=== PATIENT | male | born 1985 | race Two or more races ===

== ENCOUNTER 2018-01-29 21:32 | Inpatient (IN) | payer MEDICAID ==
[~2018-01-29] VITALS: Ht 175.3 cm; Wt 64.5 kg
--- NOTE | 2018-01-29 21:56 | Emergency Room Report ---
History of Present Illness General Chief Complaint: Fever Source: Patient, EMS Present Illness HPI This a 32-year-old male with history of HIV but not on medication currently. He 's been off of his medication for a month because he claimed it was stolen. He presents chief complaint of fever. Onset this morning when he woke up. Has chills and sweats. Also with cough productive of dark early sputum with blood. Nausea but no vomiting. No diarrhea. Decreased appetite. No sick contact. Has generalized body pain 10 out of 10. Nothing made it better. Nothing made it worse. Allergies: Coded Allergies: SULFAMETHOXAZOLE (Verified Allergy, Unknown, 01/29/18) TRIMETHOPRIM (Verified Allergy, Unknown, 01/29/18) Patient History Past Medical History: see triage record, old chart reviewed Past Surgical History: other Pertinent Family History: none Social History: Denies: smoking Immunizations: other Reviewed Nursing Documentation: PMH: Agreed; PSxH: Agreed Nursing Documentation-PMH Past Medical History: No History, Except For Hx Cardiac Problems: No - HIV+ Review of Systems Constitutional: Reports: chills, sweats, fever, malaise, weakness Eye: Denies: eye pain, blurred vision ENT: Denies: ear pain, nose congestion, throat swelling Respiratory: Reports: cough, shortness of breath, sputum Cardiovascular: Denies: chest pain, palpitations Gastrointestinal: Denies: abdominal pain, diarrhea, nausea, vomiting Musculoskeletal: Denies: back pain, joint pain Skin: Denies: rash Neurological: Denies: headache, numbness Endocrine: Denies: increased thirst, increased urine Hematologic/Lymphatic: Denies: easy bruising All Other Systems: negative except mentioned in HPI Physical Exam Vital Signs Date Time Temp Pulse Resp B/P (MAP) Pulse Ox O2 Delivery O2 Flow Rate FiO2 01/29/18 21:29 103.2 125 20 102/55 100 Room Air 103.3 vitals with fever and tachycardia Sp02 EP Interpretation: reviewed, normal General Appearance: thin Head: normocephalic, atraumatic Eyes: bilateral eye PERRL, bilateral eye EOMI ENT: hearing grossly normal, normal pharynx Neck: full range of motion, supple, no meningismus Respiratory: chest non-tender, lungs clear, normal breath sounds, decreased breath sounds Cardiovascular #1: regular rate, rhythm, no murmur Gastrointestinal: normal bowel sounds, non tender, no mass, no organomegaly, no bruit, non-distended Musculoskeletal: back normal, gait/station normal, normal range of motion Neurologic: alert, oriented x3 Psychiatric: mood/affect normal Skin: warm/dry Medical Decision Making Diagnostic Impression: Primary Impression: Sepsis Qualified Codes: A41.9 - Sepsis, unspecified organism Additional Impressions: Cough MASSIEL (acute kidney injury) Methamphetamine abuse Fever Qualified Codes: R50.9 - Fever, unspecified Proteinuria Qualified Codes: R80.9 - Proteinuria, unspecified Noncompliance Anemia Qualified Codes: D64.9 - Anemia, unspecified ER Course Is a 32-year-old male presents with sepsis and fever. No obvious source of infection from bacterial standpoint. He does have bacteria in his urine. Dose of Rocephin given. This may be a viral illness. Heart rate improved after fluid. Blood pressure slowly improved after 4 L of IV fluid. Will admit for IV hydration and monitoring. I discussed the case with Dr. Toribio who will admit. Lab Results Impression labs with leukocytosis EKG Diagnostic Results Rate: normal Rhythm: NSR ST Segments: no acute changes Rhythm Strip Diag. Results Rhythm Strip Time: 02:44 EP Interpretation: yes Rate: 100 Rhythm: NSR, no PVC's, no ectopy Chest X-Ray Diagnostic Results Chest X-Ray Diagnostic Results : Chest X-Ray Ordered: Yes # of Views/Limited/Complete: 1 View Indication: Shortness of Breath EP Interpretation: Yes Interpretation: no consolidation, no effusion, no pneumothorax, no acute cardiopulmonary disease Impression: No acute disease Electronically Signed by: Carson Isidro MD Last Vital Signs Date Time Temp Pulse Resp B/P (MAP) Pulse Ox O2 Delivery O2 Flow Rate FiO2 01/29/18 21:29 103.2 125 20 102/55 100 Room Air 103.3 Status: improved Disposition: ADMITTED INPATIENT Condition: Serious CARSON ISIDRO M.D. Jan 29, 2018 21:56
[2018-01-29] MEDS ORDERED: NS 1000ml 1,900 ML IVLG ONE (22:00)
[2018-01-29] MEDS ORDERED: Acetaminophen 500mg (ES) tab ORAL ONE (22:00)
--- NOTE | 2018-01-29 22:28 | Diagnostic Imaging Report ---
EXAM: XR Chest, 1 View CLINICAL HISTORY: COUGH TECHNIQUE: Frontal view of the chest. COMPARISON: No relevant prior studies available. FINDINGS: Lungs: Unremarkable. No consolidation. Pleural space: Unremarkable. No pneumothorax. Heart: Heart size is top normal. Mediastinum: Unremarkable. Bones/joints: Unremarkable. IMPRESSION: No radiographic evidence of acute cardiopulmonary disease.
[2018-01-29 22:40] LABS: BASOPHILS % (AUTO) 1.8 % (0.0-2.0); EOSINOPHILS % (AUTO) 0.3 % (0.0-3.0); HEMOGLOBIN 8.6 G/DL (14.2-18.0); LYMPHOCYTES % (AUTO) 44.4 % (20.0-45.0); MEAN CORPUSCULAR VOLUME 89 FL (80-99); MONOCYTES % (AUTO) 10.2 % (1.0-10.0); NEUTROPHILS % (AUTO) 43.3 % (45.0-75.0); PLATELET COUNT 189 K/UL (150-450); RED BLOOD COUNT 2.94 M/UL (4.70-6.10); RED CELL DISTRIBUTION WIDTH 12.9 % (11.6-14.8); WHITE BLOOD COUNT 17.1 K/UL (4.8-10.8)
[2018-01-29 22:47] LABS: ANION GAP 7 mmol/L (5-15); BLOOD UREA NITROGEN 15 mg/dL (7-18); CALCIUM 8.2 MG/DL (8.5-10.1); CARBON DIOXIDE 22 MMOL/L (21-32); CHLORIDE 99 MMOL/L (98-107); CREATININE 1.7 MG/DL (0.55-1.30); POTASSIUM 3.6 MMOL/L (3.5-5.1); SODIUM 127 MMOL/L (136-145)
[2018-01-29 23:02] LABS: ALANINE AMINOTRANSFERASE 19 U/L (12-78); ALBUMIN 2.2 G/DL (3.4-5.0); ALKALINE PHOSPHATASE 60 U/L (46-116); ASPARTATE AMINO TRANSFERASE 41 U/L (15-37); BILIRUBIN,TOTAL 0.5 MG/DL (0.2-1.0)
[2018-01-29 23:48] LABS: APPEARANCE,URINE CLEAR; BILIRUBIN, URINE NEGATIVE (NEGATIVE); COLOR,URINE BROWN; GLUCOSE, URINE (UA) NEGATIVE (NEGATIVE); KETONES,URINE 1+ (NEGATIVE); LEUKOCYTE ESTERASE ,URINE 1+ (NEGATIVE); NITRITE,URINE NEGATIVE (NEGATIVE); PH,URINE 5 (4.5-8.0); PROTEIN,URINE 3+ (NEGATIVE); UROBILINOGEN,URINE NORMAL MG/DL (0.0-1.0)
[2018-01-30] VITALS (7 sets, daily range): BP systolic 86–106; BP diastolic 36–57
[2018-01-30] MEDS ORDERED: cefTRIAXone 1 GM in NS 55 ML IVPB ONE (00:15)
[2018-01-30] MEDS ORDERED: Miralax 17gm pkt ORAL PRN (03:45)
[2018-01-30] MEDS ORDERED: Albuterol/Ipratropium 3ml neb HHN PRN (03:45)
[2018-01-30] MEDS ORDERED: LORazepam Inj 2mg/ml 1ml IV PRN (04:00)
[2018-01-30] MEDS ORDERED: Cefepime HCl 2 GM in D5W 110 ML IV SCH ×2 (05:00→18:00)
[2018-01-30] MEDS: D5NS 1,000 ML IV SCH ×2 (06:02→17:05)
[2018-01-30] MEDS ORDERED: PPD Tuberculin Skin Test 5TU IDERMAL ONE (08:00)
[2018-01-30 08:50] LABS: CREATINE KINASE 112 U/L (26-308); LACTATE DEHYDROGENASE 171 U/L (81-234)
[2018-01-30] MEDS: Vancomycin 1 GM in D5W 275 ML IVPB SCH ×2 (09:35→22:08)
[2018-01-30 11:19] LABS: FERRITIN 278 NG/ML (8-388)
[2018-01-30 11:35] LABS: % IRON SATURATION 14 % (15-50); IRON 16 ug/dL (50-175); TOTAL IRON BINDING CAPACITY 117 ug/dL (250-450)
--- NOTE | 2018-01-30 12:03 | Consultation ---
Consult Note Consult Note This a 32-year-old male with history of HIV but not on medication currently. He 's been off of his medication for a month because he claimed it was stolen. He presents chief complaint of fever. Onset this morning when he woke up. Has chills and sweats. Also with cough productive of dark early sputum with blood. Nausea but no vomiting. No diarrhea. Decreased appetite. No sick contact. Has generalized body pain 10 out of 10. Nothing made it better. Nothing made it worse. Allergies: SULFAMETHOXAZOLE (Verified Allergy, Unknown, 01/29/18) TRIMETHOPRIM (Verified Allergy, Unknown, 01/29/18) Nursing Documentation-[facility] Past Medical History: No History, Except For Hx Cardiac Problems: No - HIV+ . Assessment/Plan Renal failure ? mixed acute and chronic Has proteinuria and hypoalbuminemia Hyponatremia, likely due to Hypoalbuminemia Low Iron and B12 Sepsis, cough, fever Methamphetamine abuse Anemia etiology?? Saline infusion IV venofer B12 SQ Per ID Urine studies and 24 h Urine protein gastric support BRISEYDA ALBERT Jan 30, 2018 12:03
--- NOTE | 2018-01-30 12:45 | History and Physical Report ---
DATE OF ADMISSION: 01/30/2018 TIME SEEN: At 9 a.m. CONSULTANTS: 1. Axel Evans M.D. 2. Mauro Santiago M.D. 3. Robert Izquierdo M.D. CHIEF COMPLAINT: Weakness, sepsis, fever, tachycardia. BRIEF HISTORY: This is a 32-year-old male, homeless man, who presents to [place] [facility] last night with history of increased heart rate and was feeling feverish, found to have sepsis and tachycardia, admitted to telemetry for further care. Currently, feeling a little bit better, slightly anxious in bed, slightly short of breath in bed. REVIEW OF SYSTEMS: No chest pain. Slight shortness of breath. No nausea, vomiting, or diarrhea. PAST MEDICAL HISTORY: HIV. PAST SURGICAL HISTORY: None. ALLERGIES: Denies. MEDICATIONS: Include cefepime, vancomycin, Tylenol, morphine, Zofran, dextrose, ceftriaxone. SOCIAL HISTORY: Positive for smoking. Occasional alcohol. Positive marijuana use. OBJECTIVE: GENERAL: Calm in bed, oriented x3, in no acute distress. VITAL SIGNS: Temperature 99, pulse 104, respirations 14, blood pressure 93/50. CARDIOVASCULAR: No murmur. LUNGS: Poor exchange. ABDOMEN: Nondistended. EXTREMITIES: Show no cyanosis, clubbing, or edema. NEUROLOGIC: The patient moves all extremities, slightly weak. LABORATORY AND DIAGNOSTIC DATA: Labs at this time show white count 17, hemoglobin and hematocrit 8.6 and 26, otherwise normal. BMP shows sodium 127, creatinine 1.7. Urine-tox positive for amphetamines and marijuana. Urinalysis, 1+ leukocyte esterase. ASSESSMENT: UTI, sepsis, fever, tachycardia, anemia, renal insufficiency, HIV, drug abuse. PLAN: Continue previous medications. O2 and pulmonary treatment. Antibiotics per Infectious Disease. Blood pressure control. Detox. Dietary followup. Dr. Evans, Dr. Santiago, Dr. Izquierdo, and Dr. Quinn to consult. Jorge Toribio D.O. DR: Sonido JOB#: [id number] CC:
[2018-01-30] MEDS ORDERED: Morphine Sulfate 4mg/ml Inj IVP PRN (12:56)
[2018-01-30] MEDS ORDERED: Iron Sucrose 200 MG in NS 110 ML IV ONE (14:00)
--- NOTE | 2018-01-30 17:09 | Consultation ---
Consult Note Consult Note # [id number] Axel Evans MD Jan 30, 2018 17:09
--- NOTE | 2018-01-30 18:15 | Consultation ---
DATE OF CONSULTATION: 01/30/2018 INFECTIOUS DISEASE CONSULTATION CONSULTING PHYSICIAN: Axel Evans M.D. REFERRING PHYSICIAN: Jorge Toribio D.O. REASON FOR CONSULTATION: Evaluation of the patient for HIV, pneumonia, and fever, antibiotic management. HISTORY OF PRESENT ILLNESS: The patient is a 32-year-old transgender (male to female) with multiple medical problems as listed below including history of HIV since 2009. The patient was admitted to this medical center because of the general weakness, cough and fever. The patient overall is not very cooperative with the exam providing information. He does not know much about details of his HIV status. The patient has been started on IV antibiotics. An Infectious Disease consultation has been requested for further evaluation of the patient's antibiotic management. PAST MEDICAL HISTORY: 1. HIV, diagnosed in 2009 (unknown CD4 count and viral load, clinically the patient appears to be well-controlled). 2. History of recent fall 3 days ago and hand edema and swelling since then. 3. The patient smokes tobacco and marijuana. MEDICATIONS: Cefepime and vancomycin. ALLERGIES: Sulfa. FAMILY HISTORY: Noncontributing. SOCIAL HISTORY: The patient is homeless. No history of IV drug abuse. REVIEW OF SYSTEMS: HEENT: No recent change in vision or hearing. PULMONARY: As mentioned above. CARDIOVASCULAR: No chest pain or palpitations. GASTROINTESTINAL/ABDOMEN: Nausea, vomiting, ? mild diarrhea prior to admission. MUSCULOSKELETAL: As mentioned above. The patient has left hand tenderness and swelling. PHYSICAL EXAMINATION: VITAL SIGNS: Temperature 102 degrees, blood pressure 97/54, pulse 86, and respiratory rate 18. HEENT: No pale conjunctivae. No icterus. No thrush. NECK: No lymphadenopathy. CHEST: Clear. HEART: S1 and S2. ABDOMEN: Soft and nontender. EXTREMITIES: The patient has left hand edema and tenderness. NEUROLOGIC: Awake and alert. LABORATORY AND DIAGNOSTIC DATA: White blood cells 17, hemoglobin 8.6, and platelet 189. UA unremarkable. BUN 15 and creatinine 0.7. ALT, AST, and alkaline phosphatase unremarkable. CD4 count pending. HIV antibody is pending. Coccidia and RPR are pending. Chest x-ray, [facility]. ASSESSMENT: The patient is a 32-year-old male with 1. Fever. 2. Leukocytosis. 3. ? Bronchitis versus early stage of community acquired pneumonia. 4. Leukocytosis . 5. ? left hand cellulitis (difficult to assess erythema in view of patient's dark skin). 6. HIV, ? CD4 count and viral load. 7. Rule out left hand fracture. 8. Rule out bacteremia. PLAN: 1. We will continue the patient on IV vancomycin, change cefepime to Levaquin. 2. Monitor CBC and BMP. 3. Monitor blood culture. 4. Monitor sputum culture. 5. Monitor chest x-ray. 6. Left hand x-ray, rule out fracture. 7. We will contact [facility] on Thursday to get list of the patient's home medication and we will start the patient's antiretroviral based on that. 8. Monitor CD4 count. Thank you, Dr. Jorge Toribio, for allowing me to participate in the care of this patient. I will follow the patient with you during this hospitalization. Axel Evans M.D. DR: JOSH JOB#: [id number] CC:
--- NOTE | 2018-01-30 18:48 | Cardiac Electrophysiology PN ---
Subjective Subjective [id number] Objective Last 24 Hour Vital Signs Date Time Temp Pulse Resp B/P (MAP) Pulse Ox O2 Delivery O2 Flow Rate FiO2 01/30/18 16:02 102.2 01/30/18 16:00 116 01/30/18 12:00 106 01/30/18 12:00 98.3 105 20 97/54 98 Room Air 98.3 01/30/18 08:00 111 01/30/18 08:00 98.0 103 19 99/42 97 Room Air 98.0 01/30/18 04:00 100 01/30/18 03:15 104 93/50 93 01/30/18 02:50 99.6 100 14 99/36 96 Room Air 99.6 01/30/18 02:41 99.6 100 14 99/36 96 Room Air 99.6 01/30/18 02:06 101.6 101 14 96/39 96 Room Air 101.6 01/30/18 01:28 101.6 01/29/18 22:31 103.2 01/29/18 21:29 103.2 125 20 102/55 100 Room Air 103.3 Intake and Output 01/29/18 01/30/18 19:00 07:00 Intake Total 3955 ml Output Total 200 ml Balance 3755 ml IV Total 3955 ml Output Urine Total 200 ml Laboratory Tests Test 01/29/18 22:15 01/29/18 23:34 01/30/18 00:00 01/30/18 06:00 White Blood Count 17.1 K/UL (4.8-10.8) H Pending Red Blood Count 2.94 M/UL (4.70-6.10) L Hemoglobin 8.6 G/DL (14.2-18.0) L Hematocrit 26.0 % (42.0-52.0) L Mean Corpuscular Volume 89 FL (80-99) Mean Corpuscular Hemoglobin 29.3 PG (27.0-31.0) Mean Corpuscular Hemoglobin Concent 33.0 G/DL (32.0-36.0) Red Cell Distribution Width 12.9 % (11.6-14.8) Platelet Count 189 K/UL (150-450) Mean Platelet Volume 7.0 FL (6.5-10.1) Neutrophils (%) (Auto) 43.3 % (45.0-75.0) L Lymphocytes (%) (Auto) 44.4 % (20.0-45.0) Monocytes (%) (Auto) 10.2 % (1.0-10.0) H Eosinophils (%) (Auto) 0.3 % (0.0-3.0) Basophils (%) (Auto) 1.8 % (0.0-2.0) Sodium Level 127 MMOL/L (136-145) L Potassium Level 3.6 MMOL/L (3.5-5.1) Chloride Level 99 MMOL/L (98-107) Carbon Dioxide Level 22 MMOL/L (21-32) Anion Gap 7 mmol/L (5-15) Blood Urea Nitrogen 15 mg/dL (7-18) Creatinine 1.7 MG/DL (0.55-1.30) H Estimat Glomerular Filtration Rate 47.2 mL/min (>60) Glucose Level 103 MG/DL (74-106) Lactic Acid Level 1.10 mmol/L (0.4-2.0) Calcium Level 8.2 MG/DL (8.5-10.1) L Total Bilirubin 0.5 MG/DL (0.2-1.0) Aspartate Amino Transf (AST/SGOT) 41 U/L (15-37) H Alanine Aminotransferase (ALT/SGPT) 19 U/L (12-78) Alkaline Phosphatase 60 U/L (46-116) Total Protein 12.3 G/DL (6.4-8.2) H Albumin 2.2 G/DL (3.4-5.0) L Globulin 10.1 g/dL Urine Color Brown Urine Appearance Clear Urine pH 5 (4.5-8.0) Urine Specific [place] 1.015 (1.005-1.035) Urine Protein 3+ (NEGATIVE) H Urine Glucose (UA) Negative (NEGATIVE) Urine Ketones 1+ (NEGATIVE) H Urine Occult Blood 2+ (NEGATIVE) H Urine Nitrite Negative (NEGATIVE) Urine Bilirubin Negative (NEGATIVE) Urine Urobilinogen Normal MG/DL (0.0-1.0) Urine Leukocyte Esterase 1+ (NEGATIVE) H Urine RBC 2-4 /HPF (0 - 0) H Urine WBC 2-4 /HPF (0 - 0) Urine Squamous Epithelial Cells Occasional /LPF Urine Amorphous Sediment Few /LPF (NONE) H Urine Bacteria Few /HPF (NONE) Urine Mucus Moderate /LPF (NONE/OCC) H Urine Opiates Screen Negative (NEGATIVE) Urine Barbiturates Screen Negative (NEGATIVE) Phencyclidine (PCP) Screen Negative (NEGATIVE) Urine Amphetamines Screen Positive (NEGATIVE) H Urine Benzodiazepines Screen Negative (NEGATIVE) Urine Cocaine Screen Negative (NEGATIVE) Urine Marijuana (THC) Screen Positive (NEGATIVE) H HIV-1 Antibody Pending HIV-2 Antibody Pending Lymphocytes Pending Osmolality 280 mOsm/kg (297-317) L Uric Acid 5.5 MG/DL (2.6-7.2) Iron Level 16 ug/dL (50-175) L Total Iron Binding Capacity 117 ug/dL (250-450) L Percent Iron Saturation 14 % (15-50) L Unsaturated Iron Binding 101 ug/dL (112-346) L Ferritin 278 NG/ML (8-388) Lactate Dehydrogenase 171 U/L (81-234) Total Creatine Kinase 112 U/L (26-308) C-Reactive Protein, Quantitative 7.0 mg/dL (0.00-0.90) H Vitamin B12 Level 292 PG/ML (193-986) Folate 16.0 NG/ML (8.6-58.9) Percent CD3 Cells Pending Absolute CD3 Count Pending Percent CD4 Cells Pending Absolute CD4 Count Pending T-Lymphocyte CD4/CD8 Ratio Pending Percent CD8 Cells Pending Absolute CD8 Count Pending Rapid Plasma Reagin Pending Coccidioides Antibody (Comp Fix) Pending HIV (1&2) Antibody Rapid Preliminary positive Toxoplasma IgG Antibody Pending Toxoplasma IgM Antibody Pending Test 01/30/18 10:00 Urine Random Sodium 98 mmol/L (20-110) Mauro Santiago MD Jan 30, 2018 18:48
--- NOTE | 2018-01-30 21:30 | Consultation ---
DATE OF CONSULTATION: 01/30/2018 CARDIOLOGY CONSULTATION CONSULTING PHYSICIAN: Mauro Santiago M.D. REFERRING PHYSICIAN: Jorge Toribio D.O. REASON FOR CONSULTATION: Palpitation and tachycardia. HISTORY OF PRESENT ILLNESS: The patient is a 32-year-old, transgender male to female with history of HIV, pneumonia who was admitted to the hospital because of generalized weakness, cough, and fever. The patient does not have much information about his HIV status. The patient however was tachycardic and a Cardiology consultation was obtained for further evaluation. REVIEW OF SYSTEMS: Review of systems was negative other than what was mentioned in the history of present illness. PAST MEDICAL HISTORY: 1. HIV in 2009 with no CD4 count and viral load. 2. History of fall two days ago without edema and swelling. MEDICATIONS: Per reconciliation. ALLERGIES: He is allergic to sulfa. SOCIAL HISTORY: He is homeless. No history of IV drug use. PHYSICAL EXAMINATION: VITAL SIGNS: Blood pressure of 97/54, pulse 105, respirations 20, and temperature 102.2 degrees. HEAD AND NECK: No JVD. LUNGS: Coarse rhonchi. CARDIOVASCULAR: Tachycardic. S1 and S2 with no gallop or murmur. ABDOMEN: Soft and nontender. EXTREMITIES: A 1+ pitting edema. LABORATORY AND DIAGNOSTIC DATA: Show white count of 17.1, hemoglobin 8.7, hematocrit 26, and platelet count of 189. Sodium 127, potassium 3.6, BUN of 51, creatinine 1.7, and glucose of 103. ASSESSMENT AND PLAN: 1. Tachycardia, this is due to sinus tachycardia. The patient has fever and sepsis. We will get an echocardiogram to make sure, he does not have endocarditis. the patient remains on IV antibiotic. 2. HIV. Further evaluation by Dr. Evans. 3. Transgender male to female. Thank you very much, Dr. Toribio, for allowing me to participate in the care of this patient. Please do not hesitate to contact me for any questions regarding my evaluation. Mauro Santiago M.D. DR: OKSANA JOB#: [id number] CC:
[2018-01-31] VITALS: BP 98/56
[2018-01-31 04:00] VITALS: BP 89/50
[2018-01-31 06:26] LABS: APPEARANCE,URINE CLEAR; BILIRUBIN, URINE NEGATIVE (NEGATIVE); GLUCOSE, URINE (UA) NEGATIVE (NEGATIVE); KETONES,URINE NEGATIVE (NEGATIVE); LEUKOCYTE ESTERASE ,URINE 2+ (NEGATIVE); NITRITE,URINE NEGATIVE (NEGATIVE); PH,URINE 6 (4.5-8.0); PROTEIN,URINE 2+ (NEGATIVE); UROBILINOGEN,URINE NORMAL MG/DL (0.0-1.0)
[2018-01-31 06:38] LABS: COLOR,URINE YELLOW
[2018-01-31] MEDS: D5NS 1,000 ML IV SCH ×2 (06:50→21:07)
[2018-01-31 08:00] VITALS: BP 90/54
[2018-01-31 08:49] LABS: HEMATOCRIT 23.9 % (42.0-52.0); HEMOGLOBIN 7.5 G/DL (14.2-18.0); MEAN CORPUSCULAR VOLUME 90 FL (80-99); PLATELET COUNT 159 K/UL (150-450); RED BLOOD COUNT 2.66 M/UL (4.70-6.10); RED CELL DISTRIBUTION WIDTH 13.2 % (11.6-14.8); WHITE BLOOD COUNT 5.4 K/UL (4.8-10.8)
[2018-01-31 09:05] LABS: INR 1.2 (0.9-1.1)
--- NOTE | 2018-01-31 09:10 | General Progress Note ---
Assessment/Plan Problem List: (1) UTI (urinary tract infection) ICD Codes: N39.0 - Urinary tract infection, site not specified SNOMED: 51101624 (2) Anemia ICD Codes: D64.9 - Anemia, unspecified SNOMED: 811911397 Qualifiers: Qualified Codes: D64.9 - Anemia, unspecified (3) Cough ICD Codes: R05 - Cough SNOMED: 09685803 (4) Methamphetamine abuse ICD Codes: F15.10 - Other stimulant abuse, uncomplicated SNOMED: 698910191 (5) MASSIEL (acute kidney injury) ICD Codes: N17.9 - Acute kidney failure, unspecified SNOMED: 56232923 (6) Fever ICD Codes: R50.9 - Fever, unspecified SNOMED: 571498154 Qualifiers: Qualified Codes: R50.9 - Fever, unspecified (7) Sepsis ICD Codes: A41.9 - Sepsis, unspecified organism SNOMED: 12331218 Qualifiers: Qualified Codes: A41.9 - Sepsis, unspecified organism Status: unchanged Assessment/Plan ot pt diet abx detox cbc bmp am Subjective Constitutional: Reports: weakness Allergies: Coded Allergies: SULFAMETHOXAZOLE (Verified Allergy, Unknown, 01/29/18) TRIMETHOPRIM (Verified Allergy, Unknown, 01/29/18) All Systems: reviewed and negative except above Subjective sleepy calm Objective Last 24 Hour Vital Signs Date Time Temp Pulse Resp B/P (MAP) Pulse Ox O2 Delivery O2 Flow Rate FiO2 01/31/18 08:16 90 20 Room Air 01/31/18 08:00 97.3 100 18 90/54 97 Room Air 97.3 01/31/18 06:11 98.2 01/31/18 05:12 100.5 01/31/18 04:00 112 01/31/18 04:00 100.5 113 20 89/50 96 Room Air 100.5 01/31/18 00:00 99.0 112 22 98/56 94 Room Air 99.0 01/31/18 00:00 109 01/30/18 20:36 108 20 Room Air 01/30/18 20:00 105 01/30/18 20:00 99.6 108 20 86/52 98 Room Air 99.6 01/30/18 16:02 102.2 01/30/18 16:00 102.2 111 22 106/57 96 Room Air 102.2 01/30/18 16:00 116 01/30/18 12:00 106 01/30/18 12:00 98.3 105 20 97/54 98 Room Air 98.3 Intake and Output 01/30/18 01/31/18 19:00 07:00 Intake Total 895 ml 1705.0 ml Output Total 1800 ml 1150 ml Balance -905 ml 555.0 ml Intake Oral 720 ml 480 ml IV Total 175 ml 1225.0 ml Output Urine Total 1800 ml 1150 ml # Voids 3 2 # Bowel Movements 2 Laboratory Tests 01/30/18 10:00: Urine Random Sodium 98 01/30/18 22:30: Urine Color Yellow, Urine Appearance Clear, Urine pH 6, Urine Specific [place] 1.010, Urine Protein 2+H, Urine Glucose (UA) Negative, Urine Ketones Negative, Urine Occult Blood 3+H, Urine Nitrite Negative, Urine Bilirubin Negative, Urine Urobilinogen Normal, Urine Leukocyte Esterase 2+H, Urine RBC 2-4H, Urine WBC 2-4 , Urine Squamous Epithelial Cells Occasional, Urine Bacteria Occasional, Urine Eosinophils None seen, Urine Osmolality 372L, Urine Potassium Timed 30 01/31/18 08:20: White Blood Count [Pending], Red Blood Count 2.66L, Hemoglobin 7.5L, Hematocrit 23.9L, Mean Corpuscular Volume 90, Mean Corpuscular Hemoglobin 28.1, Mean Corpuscular Hemoglobin Concent 31.2L, Red Cell Distribution Width 13.2, Platelet Count 159, Mean Platelet Volume 7.1, Neutrophils (%) (Auto) , Lymphocytes (%) (Auto) , Monocytes (%) (Auto) , Eosinophils (%) (Auto) , Basophils (%) (Auto) , Neutrophils % (Manual) [Pending], Lymphocytes % (Manual) [Pending], Lymphocytes [Pending], Platelet Estimate [Pending], Platelet Morphology [Pending], Erythrocyte Sedimentation Rate [Pending], Reticulocyte Count [Pending], Prothrombin Time 12.7H, Prothromb Time International Ratio 1.2H , Activated Partial Thromboplast Time 39H, Sodium Level [Pending], Potassium Level [Pending], Chloride Level [Pending], Carbon Dioxide Level [Pending], Blood Urea Nitrogen [Pending], Creatinine [Pending], Estimat Glomerular Filtration Rate [Pending], Glucose Level [Pending], Uric Acid [Pending], Calcium Level [Pending], Phosphorus Level [Pending], Magnesium Level [Pending], Total Bilirubin [Pending], Gamma Glutamyl Transpeptidase [Pending], Aspartate Amino Transf (AST/SGOT) [Pending], Alanine Aminotransferase (ALT/SGPT) [Pending] , Alkaline Phosphatase [Pending], Lactate Dehydrogenase [Pending], Total Creatine Kinase [Pending], Pro-B-Type Natriuretic Peptide [Pending], Total Protein [Pending], Albumin [Pending], Globulin [Pending], Triglycerides Level [ Pending], Cholesterol Level [Pending], LDL Cholesterol [Pending], HDL Cholesterol [Pending], Cholesterol/HDL Ratio [Pending], Carcinoembryonic Antigen [Pending], Thyroid Stimulating Hormone (TSH) [Pending], Cortisol AM Sample [Pending], Vancomycin Level Trough [Pending], Percent CD3 Cells [Pending] , Absolute CD3 Count [Pending], Percent CD4 Cells [Pending], Absolute CD4 Count [Pending], T-Lymphocyte CD4/CD8 Ratio [Pending], Percent CD8 Cells [Pending], Absolute CD8 Count [Pending] Height (Feet): 5 Height (Inches): 9.00 Weight (Pounds): 142 General Appearance: lethargic EENT: normal ENT inspection Neck: normal alignment Cardiovascular: normal peripheral pulses, normal rate, regular rhythm Respiratory/Chest: chest wall non-tender, lungs clear, normal breath sounds Abdomen: normal bowel sounds, non tender, soft Extremities: normal inspection Edema: no edema noted Arm (L), no edema noted Arm (R), no edema noted Leg (L), no edema noted Leg (R), no edema noted Pedal (L), no edema noted Pedal (R), no edema noted Generalized Neurologic: motor weakness Skin: normal pigmentation, warm/dry Jorge Toribio DO Jan 31, 2018 09:09
[2018-01-31 09:21] LABS: ALBUMIN 1.6 G/DL (3.4-5.0); ANION GAP 2 mmol/L (5-15); BLOOD UREA NITROGEN 8 mg/dL (7-18); CALCIUM 7.4 MG/DL (8.5-10.1); CARBON DIOXIDE 21 MMOL/L (21-32); CHLORIDE 106 MMOL/L (98-107); CREATININE 1.2 MG/DL (0.55-1.30); PHOSPHORUS 2.2 MG/DL (2.5-4.9); POTASSIUM 2.9 MMOL/L (3.5-5.1); SODIUM 129 MMOL/L (136-145)
[2018-01-31 09:33] LABS: ALANINE AMINOTRANSFERASE 15 U/L (12-78); ALBUMIN 1.6 G/DL (3.4-5.0); ALBUMIN/GLOBULIN RATIO 0.2 (1.0-2.7); ALKALINE PHOSPHATASE 44 U/L (46-116); ANION GAP 3 mmol/L (5-15); ASPARTATE AMINO TRANSFERASE 29 U/L (15-37); BILIRUBIN,TOTAL 0.4 MG/DL (0.2-1.0); BLOOD UREA NITROGEN 8 mg/dL (7-18); CALCIUM 7.4 MG/DL (8.5-10.1); CARBON DIOXIDE 22 MMOL/L (21-32); CHLORIDE 106 MMOL/L (98-107); CREATININE 1.2 MG/DL (0.55-1.30); POTASSIUM 2.9 MMOL/L (3.5-5.1); SODIUM 131 MMOL/L (136-145)
[2018-01-31 09:36] LABS: CHOLESTEROL 54 MG/DL (< 200); CREATINE KINASE 102 U/L (26-308); GAMMA GLUTAMYL TRANSPEPTIDASE 66 U/L (5-85); HDL CHOLESTEROL 13 MG/DL (40-60); TRIGLYCERIDES 106 MG/DL (30-150)
[2018-01-31] MEDS: Vancomycin 1 GM in D5W 275 ML IVPB SCH ×2 (09:45→21:07)
--- NOTE | 2018-01-31 10:12 | Diagnostic Imaging Report ---
EXAM: XR Left Hand Complete, 3 or More Views CLINICAL HISTORY: FX TECHNIQUE: Frontal, lateral and oblique views of the left hand. COMPARISON: No relevant prior studies available. FINDINGS: Bones/joints: No acute fracture. Soft tissues: Soft tissue swelling. IMPRESSION: No acute fracture.
--- NOTE | 2018-01-31 11:29 | Nephrology Progress Note ---
Assessment/Plan Problem List: (1) Anemia (2) Proteinuria (3) Sepsis (4) MASSIEL (acute kidney injury) (5) Methamphetamine abuse Assessment Renal failure ? mixed acute and chronic Has proteinuria and hypoalbuminemia Hyponatremia, likely due to Hypoalbuminemia, Na 131 today Low Iron and B12 Sepsis, cough, fever Methamphetamine abuse Anemia etiology?? worsened Plan Saline infusion IV venofer B12 SQ Per ID Urine studies and 24 h Urine protein gastric support trial of Albumin infusion and Lasix Subjective ROS Limited/Unobtainable: No Constitutional: Reports: malaise, weakness Objective Objective Last 24 Hour Vital Signs Date Time Temp Pulse Resp B/P (MAP) Pulse Ox O2 Delivery O2 Flow Rate FiO2 01/31/18 08:16 90 20 Room Air 01/31/18 08:00 98 01/31/18 08:00 97.3 100 18 90/54 97 Room Air 97.3 01/31/18 06:11 98.2 01/31/18 05:12 100.5 01/31/18 04:00 112 01/31/18 04:00 100.5 113 20 89/50 96 Room Air 100.5 01/31/18 00:00 99.0 112 22 98/56 94 Room Air 99.0 01/31/18 00:00 109 01/30/18 20:36 108 20 Room Air 01/30/18 20:00 105 01/30/18 20:00 99.6 108 20 86/52 98 Room Air 99.6 01/30/18 16:02 102.2 01/30/18 16:00 102.2 111 22 106/57 96 Room Air 102.2 01/30/18 16:00 116 01/30/18 12:00 106 01/30/18 12:00 98.3 105 20 97/54 98 Room Air 98.3 Intake and Output 01/30/18 01/31/18 19:00 07:00 Intake Total 895 ml 1705.0 ml Output Total 1800 ml 1150 ml Balance -905 ml 555.0 ml Intake Oral 720 ml 480 ml IV Total 175 ml 1225.0 ml Output Urine Total 1800 ml 1150 ml # Voids 3 2 # Bowel Movements 2 Laboratory Tests 01/30/18 22:30: Urine Color Yellow, Urine Appearance Clear, Urine pH 6, Urine Specific [place] 1.010, Urine Protein 2+H, Urine Glucose (UA) Negative, Urine Ketones Negative, Urine Occult Blood 3+H, Urine Nitrite Negative, Urine Bilirubin Negative, Urine Urobilinogen Normal, Urine Leukocyte Esterase 2+H, Urine RBC 2-4H, Urine WBC 2-4 , Urine Squamous Epithelial Cells Occasional, Urine Bacteria Occasional, Urine Eosinophils None seen, Urine Osmolality 372L, Urine Potassium Timed 30 01/31/18 08:20: White Blood Count [Pending], Red Blood Count 2.66L, Hemoglobin 7.5L, Hematocrit 23.9L, Mean Corpuscular Volume 90, Mean Corpuscular Hemoglobin 28.1, Mean Corpuscular Hemoglobin Concent 31.2L, Red Cell Distribution Width 13.2, Platelet Count 159, Mean Platelet Volume 7.1, Neutrophils (%) (Auto) , Lymphocytes (%) (Auto) , Monocytes (%) (Auto) , Eosinophils (%) (Auto) , Basophils (%) (Auto) , Differential Total Cells Counted 100, Neutrophils % ( Manual) 42L, Lymphocytes % (Manual) 36, Monocytes % (Manual) 8, Eosinophils % ( Manual) 7H, Basophils % (Manual) 0, Band Neutrophils 7, Lymphocytes [Pending], Platelet Estimate Adequate, Platelet Morphology Normal, Hypochromasia 1+, Erythrocyte Sedimentation Rate 135H, Reticulocyte Count 0.5, Prothrombin Time 12.7H, Prothromb Time International Ratio 1.2H, Activated Partial Thromboplast Time 39H, Sodium Level 131L, Potassium Level 2.9L, Chloride Level 106, Carbon Dioxide Level 22, Anion Gap 3L, Blood Urea Nitrogen 8, Creatinine 1.2, Estimat Glomerular Filtration Rate > 60, Glucose Level 145H, Uric Acid 5.3, Calcium Level 7.4L, Phosphorus Level 2.2L, Magnesium Level 1.6L, Total Bilirubin 0.4, Gamma Glutamyl Transpeptidase 66, Aspartate Amino Transf (AST/SGOT) 29, Alanine Aminotransferase (ALT/SGPT) 15, Alkaline Phosphatase 44L, Lactate Dehydrogenase 228, Total Creatine Kinase 102, Pro-B-Type Natriuretic Peptide 1268H, Total Protein 9.8H, Albumin 1.6L, Globulin 8.2, Albumin/Globulin Ratio 0.2L, Triglycerides Level 106, Cholesterol Level 54, LDL Cholesterol 35, HDL Cholesterol 13L, Cholesterol/HDL Ratio 4.2, Carcinoembryonic Antigen [Pending], Thyroid Stimulating Hormone (TSH) 1.273, Cortisol AM Sample [Pending], Vancomycin Level Trough 10.3, Percent CD3 Cells [Pending], Absolute CD3 Count [ Pending], Percent CD4 Cells [Pending], Absolute CD4 Count [Pending], T- Lymphocyte CD4/CD8 Ratio [Pending], Percent CD8 Cells [Pending], Absolute CD8 Count [Pending] Height (Feet): 5 Height (Inches): 9.00 Weight (Pounds): 142 General Appearance: no apparent distress Cardiovascular: tachycardia Respiratory/Chest: decreased breath sounds Abdomen: distended BRISEYDA ALBERT Jan 31, 2018 11:29
[2018-01-31 12:00] VITALS: BP 105/50
[2018-01-31] MEDS ORDERED: D5NS 1000ml IV ONE (13:40)
[2018-01-31] MEDS ORDERED: Tubing IV Secondary IV ONE (13:40)
--- NOTE | 2018-01-31 14:06 | Cardiac Electrophysiology PN ---
Assessment/Plan Assessment/Plan 1. Sinus tachycardia. Due to fever and sepsis. Echocardiogram EF 55% and no vegetation 2. HIV. Further evaluation by Dr. Evans. 3. Transgender male to female. 4. Hypokalemia and hypomagnesemia, replaced DW RN Subjective Subjective Sleepy and tired. Took his meds. No arrhythmias on tele except sinus tach 100s Objective Last 24 Hour Vital Signs Date Time Temp Pulse Resp B/P (MAP) Pulse Ox O2 Delivery O2 Flow Rate FiO2 01/31/18 12:00 90 01/31/18 12:00 97.5 87 18 105/50 95 Room Air 97.5 01/31/18 08:16 90 20 Room Air 01/31/18 08:00 98 01/31/18 08:00 97.3 100 18 90/54 97 Room Air 97.3 01/31/18 06:11 98.2 01/31/18 05:12 100.5 01/31/18 04:00 112 01/31/18 04:00 100.5 113 20 89/50 96 Room Air 100.5 01/31/18 00:00 99.0 112 22 98/56 94 Room Air 99.0 01/31/18 00:00 109 01/30/18 20:36 108 20 Room Air 01/30/18 20:00 105 01/30/18 20:00 99.6 108 20 86/52 98 Room Air 99.6 01/30/18 16:02 102.2 01/30/18 16:00 102.2 111 22 106/57 96 Room Air 102.2 01/30/18 16:00 116 Intake and Output 01/30/18 01/31/18 19:00 07:00 Intake Total 895 ml 1705.0 ml Output Total 1800 ml 1150 ml Balance -905 ml 555.0 ml Intake Oral 720 ml 480 ml IV Total 175 ml 1225.0 ml Output Urine Total 1800 ml 1150 ml # Voids 3 2 # Bowel Movements 2 Laboratory Tests Test 01/30/18 22:30 01/31/18 08:20 Urine Color Yellow Urine Appearance Clear Urine pH 6 (4.5-8.0) Urine Specific [place] 1.010 (1.005-1.035) Urine Protein 2+ (NEGATIVE) H Urine Glucose (UA) Negative (NEGATIVE) Urine Ketones Negative (NEGATIVE) Urine Occult Blood 3+ (NEGATIVE) H Urine Nitrite Negative (NEGATIVE) Urine Bilirubin Negative (NEGATIVE) Urine Urobilinogen Normal MG/DL (0.0-1.0) Urine Leukocyte Esterase 2+ (NEGATIVE) H Urine RBC 2-4 /HPF (0 - 0) H Urine WBC 2-4 /HPF (0 - 0) Urine Squamous Epithelial Cells Occasional /LPF Urine Bacteria Occasional /HPF (NONE) Urine Eosinophils None seen Urine Osmolality 372 mOsm/kg (429-449) L Urine Potassium Timed 30 mmol/L (12-62) White Blood Count Pending Red Blood Count 2.66 M/UL (4.70-6.10) L Hemoglobin 7.5 G/DL (14.2-18.0) L Hematocrit 23.9 % (42.0-52.0) L Mean Corpuscular Volume 90 FL (80-99) Mean Corpuscular Hemoglobin 28.1 PG (27.0-31.0) Mean Corpuscular Hemoglobin Concent 31.2 G/DL (32.0-36.0) L Red Cell Distribution Width 13.2 % (11.6-14.8) Platelet Count 159 K/UL (150-450) Mean Platelet Volume 7.1 FL (6.5-10.1) Neutrophils (%) (Auto) % (45.0-75.0) Lymphocytes (%) (Auto) % (20.0-45.0) Monocytes (%) (Auto) % (1.0-10.0) Eosinophils (%) (Auto) % (0.0-3.0) Basophils (%) (Auto) % (0.0-2.0) Differential Total Cells Counted 100 Neutrophils % (Manual) 42 % (45-75) L Lymphocytes % (Manual) 36 % (20-45) Monocytes % (Manual) 8 % (1-10) Eosinophils % (Manual) 7 % (0-3) H Basophils % (Manual) 0 % (0-2) Band Neutrophils 7 % (0-8) Lymphocytes Pending Platelet Estimate Adequate Platelet Morphology Normal Hypochromasia 1+ Erythrocyte Sedimentation Rate 135 MM/HR (0-15) H Reticulocyte Count 0.5 % (0.0-2.0) Prothrombin Time 12.7 SEC (9.30-11.50) H Prothromb Time International Ratio 1.2 (0.9-1.1) H Activated Partial Thromboplast Time 39 SEC (23-33) H Sodium Level 131 MMOL/L (136-145) L Potassium Level 2.9 MMOL/L (3.5-5.1) L Chloride Level 106 MMOL/L (98-107) Carbon Dioxide Level 22 MMOL/L (21-32) Anion Gap 3 mmol/L (5-15) L Blood Urea Nitrogen 8 mg/dL (7-18) Creatinine 1.2 MG/DL (0.55-1.30) Estimat Glomerular Filtration Rate > 60 mL/min (>60) Glucose Level 145 MG/DL (74-106) H Uric Acid 5.3 MG/DL (2.6-7.2) Calcium Level 7.4 MG/DL (8.5-10.1) L Phosphorus Level 2.2 MG/DL (2.5-4.9) L Magnesium Level 1.6 MG/DL (1.8-2.4) L Total Bilirubin 0.4 MG/DL (0.2-1.0) Gamma Glutamyl Transpeptidase 66 U/L (5-85) Aspartate Amino Transf (AST/SGOT) 29 U/L (15-37) Alanine Aminotransferase (ALT/SGPT) 15 U/L (12-78) Alkaline Phosphatase 44 U/L (46-116) L Lactate Dehydrogenase 228 U/L (81-234) Total Creatine Kinase 102 U/L (26-308) Pro-B-Type Natriuretic Peptide 1268 pg/mL (0-125) H Total Protein 9.8 G/DL (6.4-8.2) H Albumin 1.6 G/DL (3.4-5.0) L Globulin 8.2 g/dL Albumin/Globulin Ratio 0.2 (1.0-2.7) L Triglycerides Level 106 MG/DL (30-150) Cholesterol Level 54 MG/DL (< 200) LDL Cholesterol 35 mg/dL (<100) HDL Cholesterol 13 MG/DL (40-60) L Cholesterol/HDL Ratio 4.2 (3.3-4.4) Carcinoembryonic Antigen Pending Thyroid Stimulating Hormone (TSH) 1.273 uiU/mL (0.358-3.740) Cortisol AM Sample Pending Vancomycin Level Trough 10.3 ug/mL (5.0-12.0) Percent CD3 Cells Pending Absolute CD3 Count Pending Percent CD4 Cells Pending Absolute CD4 Count Pending T-Lymphocyte CD4/CD8 Ratio Pending Percent CD8 Cells Pending Absolute CD8 Count Pending Microbiology Date/Time Source Procedure Growth Status 01/29/18 22:15 Blood Blood Culture - Preliminary NO GROWTH AFTER 24 HOURS Resulted 01/29/18 22:00 Blood Blood Culture - Preliminary NO GROWTH AFTER 24 HOURS Resulted 01/30/18 10:30 Sputum Gram Stain - Final Resulted 01/30/18 10:30 Sputum Sputum Culture - Preliminary NO GROWTH Resulted Objective HEAD AND NECK: No JVD. LUNGS: Coarse rhonchi. CARDIOVASCULAR: Tachycardic. S1 and S2 with no gallop or murmur. ABDOMEN: Soft and nontender. EXTREMITIES: A 1+ pitting edema. Mauro Santiago MD Jan 31, 2018 14:06
[2018-01-31 16:00] VITALS: BP 103/56
[2018-01-31] MEDS ORDERED: Meningococcal Polysacc Vaccine Inj IM ONE (17:30)
--- NOTE | 2018-01-31 17:44 | Cardiology Report ---
APPROVED REPORT EKG Measurement Heart [id number] MD [id number] Normal sinus rhythm Prolonged QT Abnormal ECG
[2018-01-31 20:00] VITALS: BP 114/63
[2018-02-01] VITALS (7 sets, daily range): BP systolic 111–128; BP diastolic 64–77
[2018-02-01] MEDS: D5NS 1,000 ML IV SCH ×2 (08:10→21:19)
[2018-02-01] MEDS: Vancomycin 1 GM in D5W 275 ML IVPB SCH ×2 (08:10→21:18)
[2018-02-01 08:20] LABS: BASOPHILS % (AUTO) 1.6 % (0.0-2.0); EOSINOPHILS % (AUTO) 12.3 % (0.0-3.0); HEMATOCRIT 27.7 % (42.0-52.0); LYMPHOCYTES % (AUTO) 54.8 % (20.0-45.0); MEAN CORPUSCULAR VOLUME 89 FL (80-99); MONOCYTES % (AUTO) 7.3 % (1.0-10.0); NEUTROPHILS % (AUTO) 24.1 % (45.0-75.0); PLATELET COUNT 183 K/UL (150-450); RED BLOOD COUNT 3.11 M/UL (4.70-6.10); RED CELL DISTRIBUTION WIDTH 12.7 % (11.6-14.8); WHITE BLOOD COUNT 6.2 K/UL (4.8-10.8)
[2018-02-01 08:33] LABS: ALANINE AMINOTRANSFERASE 13 U/L (12-78); ALBUMIN 1.8 G/DL (3.4-5.0); ALBUMIN/GLOBULIN RATIO 0.2 (1.0-2.7); ALKALINE PHOSPHATASE 48 U/L (46-116); ANION GAP 3 mmol/L (5-15); ASPARTATE AMINO TRANSFERASE 31 U/L (15-37); BILIRUBIN,TOTAL 0.3 MG/DL (0.2-1.0); BLOOD UREA NITROGEN 6 mg/dL (7-18); CALCIUM 7.9 MG/DL (8.5-10.1); CARBON DIOXIDE 24 MMOL/L (21-32); CHLORIDE 105 MMOL/L (98-107); CREATININE 1.1 MG/DL (0.55-1.30); PHOSPHORUS 2.7 MG/DL (2.5-4.9); POTASSIUM 3.5 MMOL/L (3.5-5.1); SODIUM 132 MMOL/L (136-145)
--- NOTE | 2018-02-01 09:16 | Cardiology Report ---
APPROVED REPORT EXAM: Two-dimensional and M-mode echocardiogram with Doppler and color Doppler. INDICATION Tachycardia M-Mode DIMENSIONS IVSd1.2 (0.7-1.1cm)Left Atrium (MM)3.2 (1.6-4.0cm) LVDd5.4 (3.5-5.6cm)Aortic Root2.8 (2.0-3.7cm) PWd1.1 (0.7-1.1cm)Aortic Cusp Exc.1.9 (1.5-2.0cm) LVDs3.3 (2.5-4.0cm) PWs1.4 cm Normal left ventricular chamber size, systolic function and wall motion. Left ventricular ejection fraction estimated to be 55-60%. No evidence of left ventricular hypertrophy. No evidence of pericardial or pleural effusion. Mild bi-atrial enlargement by 2D. Focal aortic valve sclerosis with adequate cusp excursion. Thickened mitral valve leaflets with normal excursion. Mild mitral annulus and aortic root calcification. Pulmonic valve is well visualized. Normal tricuspid valve structure. IVC is normal in size and collapsible with respiration. A color flow and spectral Doppler study was performed and revealed: No aortic regurgitation. Trace mitral regurgitation. Normal mitral diastolic function. Mild tricuspid regurgitation. Tricuspid systolic velocities suggests peak right ventricular systolic pressure of 31 mmHg Pulmonic regurgitation present.
[2018-02-01] MEDS ORDERED: Tubing IV Secondary IV ONE (09:38)
[2018-02-01] MEDS ORDERED: Tubing Blood Filter IV ONE (09:38)
[2018-02-01] MEDS ORDERED: NS 500ML ONE (09:38)
--- NOTE | 2018-02-01 10:06 | Diagnostic Imaging Report ---
APPROVED REPORT CPT Code: 86484 Present Symptoms Comments: Weakness R/O DVT BILATERAL: Imaging reveals a patent deep venous system bilaterally. There is no evidence of thrombus within the femoral, popliteal or tibial segments. The greater saphenous veins are also within normal limits. Doppler indicates normal spontaneous flow within these segments. INCIDENTAL FINDING: Enlarged lymph nodes noted near right and left groin area.
--- NOTE | 2018-02-01 11:20 | Consultation ---
History of Present Illness General Date patient seen: Feb 01, 2018 Chief Complaint: Fever Present Illness HPI 32-year-old male with history of HIV, homeless, presented to ER with chief complaint of fever. Onset this morning when he woke up. Has chills and sweats. Also with cough productive of dark early sputum with blood. Nausea but no vomiting. No diarrhea. Decreased appetite. No sick contact. Has generalized body pain 10 out of 10. Nothing made it better. Nothing made it worse. Allergies: Coded Allergies: Canned Fish (Verified Allergy, Intermediate, 02/01/18) [place] (Verified Allergy, Intermediate, 02/01/18) SULFAMETHOXAZOLE (Verified Allergy, Unknown, 01/29/18) TRIMETHOPRIM (Verified Allergy, Unknown, 01/29/18) Patient History Healthcare decision maker Resuscitation status Full Code Advanced Directive on File Past Medical/Surgical History Past Medical/Surgical History: (1) HIV disease (2) Methamphetamine abuse Review of Systems All Other Systems: negative except mentioned in HPI Physical Exam General Appearance: cachetic Lines, tubes and drains: peripheral HEENT: normocephalic, atraumatic Neck: non-tender, normal alignment Respiratory/Chest: chest wall non-tender, lungs clear Breasts: no masses Cardiovascular/Chest: normal peripheral pulses, normal rate Abdomen: normal bowel sounds Genitourinary/Rectal: normal genital exam Skin Exam: normal pigmentation Neurologic: filling hauler II-XII grossly normal Last 24 Hour Vital Signs Date Time Temp Pulse Resp B/P (MAP) Pulse Ox O2 Delivery O2 Flow Rate FiO2 02/01/18 08:17 75 20 Room Air 02/01/18 08:00 97.9 86 18 120/75 96 Room Air 97.9 02/01/18 04:00 91 02/01/18 03:15 97.9 91 21 128/73 97 Room Air 97.9 02/01/18 00:00 93 02/01/18 00:00 98.1 93 20 112/64 97 Room Air 98.1 01/31/18 20:00 99.1 103 20 114/63 97 Room Air 99.1 01/31/18 20:00 105 01/31/18 19:28 91 20 Room Air 01/31/18 16:00 103 01/31/18 16:00 98.2 101 18 103/56 97 Room Air 98.2 01/31/18 12:00 90 01/31/18 12:00 97.5 87 18 105/50 95 Room Air 97.5 Intake and Output 01/31/18 02/01/18 19:00 07:00 Intake Total 795 ml 2175.0 ml Output Total 1600 ml 1600 ml Balance -805 ml 575.0 ml Intake Oral 720 ml 600 ml IV Total 75 ml 1325.0 ml Blood Product 250 ml Output Urine Total 1600 ml 1600 ml Laboratory Tests Test 02/01/18 06:00 White Blood Count 6.2 K/UL (4.8-10.8) Red Blood Count 3.11 M/UL (4.70-6.10) L Hemoglobin 9.0 G/DL (14.2-18.0) L Hematocrit 27.7 % (42.0-52.0) L Mean Corpuscular Volume 89 FL (80-99) Mean Corpuscular Hemoglobin 28.9 PG (27.0-31.0) Mean Corpuscular Hemoglobin Concent 32.4 G/DL (32.0-36.0) Red Cell Distribution Width 12.7 % (11.6-14.8) Platelet Count 183 K/UL (150-450) Mean Platelet Volume 7.1 FL (6.5-10.1) Neutrophils (%) (Auto) 24.1 % (45.0-75.0) L Lymphocytes (%) (Auto) 54.8 % (20.0-45.0) H Monocytes (%) (Auto) 7.3 % (1.0-10.0) Eosinophils (%) (Auto) 12.3 % (0.0-3.0) H Basophils (%) (Auto) 1.6 % (0.0-2.0) Sodium Level 132 MMOL/L (136-145) L Potassium Level 3.5 MMOL/L (3.5-5.1) Chloride Level 105 MMOL/L (98-107) Carbon Dioxide Level 24 MMOL/L (21-32) Anion Gap 3 mmol/L (5-15) L Blood Urea Nitrogen 6 mg/dL (7-18) L Creatinine 1.1 MG/DL (0.55-1.30) Estimat Glomerular Filtration Rate > 60 mL/min (>60) Glucose Level 90 MG/DL (74-106) Uric Acid 4.5 MG/DL (2.6-7.2) Calcium Level 7.9 MG/DL (8.5-10.1) L Phosphorus Level 2.7 MG/DL (2.5-4.9) Magnesium Level 1.9 MG/DL (1.8-2.4) Total Bilirubin 0.3 MG/DL (0.2-1.0) Aspartate Amino Transf (AST/SGOT) 31 U/L (15-37) Alanine Aminotransferase (ALT/SGPT) 13 U/L (12-78) Alkaline Phosphatase 48 U/L (46-116) Total Protein 10.7 G/DL (6.4-8.2) H Albumin 1.8 G/DL (3.4-5.0) L Globulin 8.9 g/dL Albumin/Globulin Ratio 0.2 (1.0-2.7) L Height (Feet): 5 Height (Inches): 9.00 Weight (Pounds): 142 Medications Current Medications Medications (Trade) Dose Ordered Sig/Gianna Route PRN Reason Start Time Stop Time Status Last Admin Dose Admin Acetaminophen (Tylenol) 650 mg Q4H PRN ORAL FEVER 01/30/18 03:45 03/01/18 03:44 01/31/18 05:12 Albuterol/ Ipratropium (Albuterol/ Ipratropium) 3 ml Q4HRT PRN HHN Shortness of Breath 01/30/18 03:45 02/04/18 03:44 Dextrose (Dextrose 50%) STAT PRN IV Hypoglycemia 01/30/18 03:45 03/01/18 03:44 Dextrose/Sodium Chloride 1,000 ml @ 75 mls/hr [id number] IV 01/30/18 03:45 03/01/18 03:44 02/01/18 08:10 Levofloxacin 150 ml @ 100 mls/hr Q24H IVPB 01/30/18 18:00 02/06/18 17:59 01/31/18 18:46 Lorazepam (Ativan 2mg/ml 1ml) 2 mg EVERY 2 HOURS PRN IV For Anxiety 01/30/18 04:00 02/06/18 03:59 Morphine Sulfate (Morphine Sulfate) 4 mg Q4H PRN IVP Severe Pain (Pain Scale 7-10) 01/30/18 12:56 02/06/18 12:55 Ondansetron HCl (Zofran) 4 mg Q6H PRN IVP Nausea & Vomiting 01/30/18 03:45 03/01/18 03:44 Pantoprazole (Protonix) 40 mg DAILY ORAL 01/30/18 12:30 03/01/18 12:29 02/01/18 08:10 Polyethylene Glycol (Miralax) 17 gm DAILYPRN PRN ORAL Constipation 01/30/18 03:45 03/01/18 03:44 Vancomycin HCl (Vanco rx to dose) 1 ea DAILY PRN MISC Per rx protocol 01/30/18 08:15 03/01/18 08:14 Vancomycin HCl 1 gm/Dextrose 275 ml @ 183.3 mls/ hr Q12H IVPB 01/30/18 09:30 02/04/18 09:29 02/01/18 08:10 Assessment/Plan Problem List: (1) Cough ICD Codes: R05 - Cough SNOMED: 90631130 (2) Sepsis ICD Codes: A41.9 - Sepsis, unspecified organism SNOMED: 28252478 Qualifiers: Qualified Codes: A41.9 - Sepsis, unspecified organism (3) HIV disease ICD Codes: B20 - Human immunodeficiency virus [HIV] disease SNOMED: 03599035 (4) Fever ICD Codes: R50.9 - Fever, unspecified SNOMED: 470873770 Qualifiers: Qualified Codes: R50.9 - Fever, unspecified Assessment/Plan check sputum respiratory treatment check cultures check CD4, dvt prophylaxis social service consult Robert Izquierdo MD Feb 01, 2018 11:20
--- NOTE | 2018-02-01 11:53 | General Progress Note ---
Assessment/Plan Problem List: (1) UTI (urinary tract infection) ICD Codes: N39.0 - Urinary tract infection, site not specified SNOMED: 42149752 (2) Anemia ICD Codes: D64.9 - Anemia, unspecified SNOMED: 838822474 Qualifiers: Qualified Codes: D64.9 - Anemia, unspecified (3) Cough ICD Codes: R05 - Cough SNOMED: 80943825 (4) Methamphetamine abuse ICD Codes: F15.10 - Other stimulant abuse, uncomplicated SNOMED: 357594389 (5) MASSIEL (acute kidney injury) ICD Codes: N17.9 - Acute kidney failure, unspecified SNOMED: 90713238 (6) Fever ICD Codes: R50.9 - Fever, unspecified SNOMED: 080445292 Qualifiers: Qualified Codes: R50.9 - Fever, unspecified (7) Sepsis ICD Codes: A41.9 - Sepsis, unspecified organism SNOMED: 52508590 Qualifiers: Qualified Codes: A41.9 - Sepsis, unspecified organism Status: stable, progressing Assessment/Plan ot pt diet abx detox cbc bmp am dc plan Subjective Constitutional: Reports: weakness Allergies: Coded Allergies: Canned Fish (Verified Allergy, Intermediate, 02/01/18) [place] (Verified Allergy, Intermediate, 02/01/18) SULFAMETHOXAZOLE (Verified Allergy, Unknown, 01/29/18) TRIMETHOPRIM (Verified Allergy, Unknown, 01/29/18) All Systems: reviewed and negative except above Subjective sleepy calm Objective Last 24 Hour Vital Signs Date Time Temp Pulse Resp B/P (MAP) Pulse Ox O2 Delivery O2 Flow Rate FiO2 02/01/18 08:17 75 20 Room Air 02/01/18 08:00 97.9 86 18 120/75 96 Room Air 97.9 02/01/18 04:00 91 02/01/18 03:15 97.9 91 21 128/73 97 Room Air 97.9 02/01/18 00:00 93 02/01/18 00:00 98.1 93 20 112/64 97 Room Air 98.1 01/31/18 20:00 99.1 103 20 114/63 97 Room Air 99.1 01/31/18 20:00 105 01/31/18 19:28 91 20 Room Air 01/31/18 16:00 103 01/31/18 16:00 98.2 101 18 103/56 97 Room Air 98.2 01/31/18 12:00 90 01/31/18 12:00 97.5 87 18 105/50 95 Room Air 97.5 Intake and Output 01/31/18 02/01/18 19:00 07:00 Intake Total 795 ml 2175.0 ml Output Total 1600 ml 1600 ml Balance -805 ml 575.0 ml Intake Oral 720 ml 600 ml IV Total 75 ml 1325.0 ml Blood Product 250 ml Output Urine Total 1600 ml 1600 ml Laboratory Tests 02/01/18 06:00: White Blood Count 6.2, Red Blood Count 3.11L, Hemoglobin 9.0L, Hematocrit 27.7L , Mean Corpuscular Volume 89, Mean Corpuscular Hemoglobin 28.9, Mean Corpuscular Hemoglobin Concent 32.4, Red Cell Distribution Width 12.7, Platelet Count 183, Mean Platelet Volume 7.1, Neutrophils (%) (Auto) 24.1L, Lymphocytes ( %) (Auto) 54.8H, Monocytes (%) (Auto) 7.3, Eosinophils (%) (Auto) 12.3H, Basophils (%) (Auto) 1.6, Sodium Level 132L, Potassium Level 3.5, Chloride Level 105, Carbon Dioxide Level 24, Anion Gap 3L, Blood Urea Nitrogen 6L, Creatinine 1.1, Estimat Glomerular Filtration Rate > 60, Glucose Level 90, Uric Acid 4.5, Calcium Level 7.9L, Phosphorus Level 2.7, Magnesium Level 1.9, Total Bilirubin 0.3, Aspartate Amino Transf (AST/SGOT) 31, Alanine Aminotransferase ( ALT/SGPT) 13, Alkaline Phosphatase 48, Total Protein 10.7H, Albumin 1.8L, Globulin 8.9, Albumin/Globulin Ratio 0.2L Height (Feet): 5 Height (Inches): 9.00 Weight (Pounds): 142 General Appearance: lethargic EENT: normal ENT inspection Neck: normal alignment Cardiovascular: normal peripheral pulses, normal rate, regular rhythm Respiratory/Chest: chest wall non-tender, lungs clear, normal breath sounds Abdomen: normal bowel sounds, non tender, soft Extremities: normal inspection Edema: no edema noted Arm (L), no edema noted Arm (R), no edema noted Leg (L), no edema noted Leg (R), no edema noted Pedal (L), no edema noted Pedal (R), no edema noted Generalized Neurologic: motor weakness Skin: normal pigmentation, warm/dry Jorge Toribio DO Feb 01, 2018 11:53
--- NOTE | 2018-02-01 13:21 | Nephrology Progress Note ---
Assessment/Plan Problem List: (1) Anemia (2) Proteinuria (3) Sepsis (4) MASSIEL (acute kidney injury) (5) Methamphetamine abuse Assessment Hgb higher, Na higher Renal failure resolved ? mixed acute and chronic Has proteinuria and hypoalbuminemia. Hyponatremia, likely due to Hypoalbuminemia, Na 132 today Low Iron and B12 Sepsis, cough, fever Methamphetamine abuse Anemia etiology?? worsened Plan IV venofer B12 SQ Per ID Urine studies and 24 h Urine protein gastric support trial of Albumin infusion and Lasix Subjective ROS Limited/Unobtainable: No Constitutional: Reports: malaise Objective Objective Last 24 Hour Vital Signs Date Time Temp Pulse Resp B/P (MAP) Pulse Ox O2 Delivery O2 Flow Rate FiO2 02/01/18 08:17 75 20 Room Air 02/01/18 08:00 91 02/01/18 08:00 97.9 86 18 120/75 96 Room Air 97.9 02/01/18 04:00 91 02/01/18 03:15 97.9 91 21 128/73 97 Room Air 97.9 02/01/18 00:00 93 02/01/18 00:00 98.1 93 20 112/64 97 Room Air 98.1 01/31/18 20:00 99.1 103 20 114/63 97 Room Air 99.1 01/31/18 20:00 105 01/31/18 19:28 91 20 Room Air 01/31/18 16:00 103 01/31/18 16:00 98.2 101 18 103/56 97 Room Air 98.2 Intake and Output 01/31/18 02/01/18 19:00 07:00 Intake Total 795 ml 2175.0 ml Output Total 1600 ml 1600 ml Balance -805 ml 575.0 ml Intake Oral 720 ml 600 ml IV Total 75 ml 1325.0 ml Blood Product 250 ml Output Urine Total 1600 ml 1600 ml Current Medications Medications (Trade) Dose Ordered Sig/Gianna Route PRN Reason Start Time Stop Time Status Last Admin Dose Admin Acetaminophen (Tylenol) 650 mg Q4H PRN ORAL FEVER 01/30/18 03:45 03/01/18 03:44 01/31/18 05:12 Albuterol/ Ipratropium (Albuterol/ Ipratropium) 3 ml Q4HRT PRN HHN Shortness of Breath 01/30/18 03:45 02/04/18 03:44 Dextrose (Dextrose 50%) STAT PRN IV Hypoglycemia 01/30/18 03:45 03/01/18 03:44 Dextrose/Sodium Chloride 1,000 ml @ 75 mls/hr [id number] IV 01/30/18 03:45 03/01/18 03:44 02/01/18 08:10 Levofloxacin 150 ml @ 100 mls/hr Q24H IVPB 01/30/18 18:00 02/06/18 17:59 01/31/18 18:46 Lorazepam (Ativan 2mg/ml 1ml) 2 mg EVERY 2 HOURS PRN IV For Anxiety 01/30/18 04:00 02/06/18 03:59 Morphine Sulfate (Morphine Sulfate) 4 mg Q4H PRN IVP Severe Pain (Pain Scale 7-10) 01/30/18 12:56 02/06/18 12:55 Ondansetron HCl (Zofran) 4 mg Q6H PRN IVP Nausea & Vomiting 01/30/18 03:45 03/01/18 03:44 Pantoprazole (Protonix) 40 mg DAILY ORAL 01/30/18 12:30 03/01/18 12:29 02/01/18 08:10 Polyethylene Glycol (Miralax) 17 gm DAILYPRN PRN ORAL Constipation 01/30/18 03:45 03/01/18 03:44 Vancomycin HCl (Vanco rx to dose) 1 ea DAILY PRN MISC Per rx protocol 01/30/18 08:15 03/01/18 08:14 Vancomycin HCl 1 gm/Dextrose 275 ml @ 183.3 mls/ hr Q12H IVPB 01/30/18 09:30 02/04/18 09:29 02/01/18 08:10 Laboratory Tests 02/01/18 06:00: White Blood Count 6.2, Red Blood Count 3.11L, Hemoglobin 9.0L, Hematocrit 27.7L , Mean Corpuscular Volume 89, Mean Corpuscular Hemoglobin 28.9, Mean Corpuscular Hemoglobin Concent 32.4, Red Cell Distribution Width 12.7, Platelet Count 183, Mean Platelet Volume 7.1, Neutrophils (%) (Auto) 24.1L, Lymphocytes ( %) (Auto) 54.8H, Monocytes (%) (Auto) 7.3, Eosinophils (%) (Auto) 12.3H, Basophils (%) (Auto) 1.6, Sodium Level 132L, Potassium Level 3.5, Chloride Level 105, Carbon Dioxide Level 24, Anion Gap 3L, Blood Urea Nitrogen 6L, Creatinine 1.1, Estimat Glomerular Filtration Rate > 60, Glucose Level 90, Uric Acid 4.5, Calcium Level 7.9L, Phosphorus Level 2.7, Magnesium Level 1.9, Total Bilirubin 0.3, Aspartate Amino Transf (AST/SGOT) 31, Alanine Aminotransferase ( ALT/SGPT) 13, Alkaline Phosphatase 48, Total Protein 10.7H, Albumin 1.8L, Globulin 8.9, Albumin/Globulin Ratio 0.2L Height (Feet): 5 Height (Inches): 9.00 Weight (Pounds): 142 General Appearance: no apparent distress Cardiovascular: normal rate Respiratory/Chest: decreased breath sounds Abdomen: soft Objective no change BRISEYDA ALBERT Feb 01, 2018 13:20
--- NOTE | 2018-02-01 15:13 | Cardiac Electrophysiology PN ---
Assessment/Plan Assessment/Plan 1. Sinus tachycardia due to fever and sepsis. Echocardiogram EF 55% and no vegetation 2. HIV. Fu by Dr. Evans. 3. Transgender male to female. 4. Hypokalemia and hypomagnesemia, replaced 5. Anemia s/p PRBC yesterday Hb 7 to 9 6. Awaiting placement as homeless DW RN Subjective Subjective No arrhythmias on tele except sinus tach. No CP or SOB. Objective Last 24 Hour Vital Signs Date Time Temp Pulse Resp B/P (MAP) Pulse Ox O2 Delivery O2 Flow Rate FiO2 02/01/18 12:00 97.5 83 18 111/69 97 Room Air 97.5 02/01/18 12:00 75 02/01/18 08:17 75 20 Room Air 02/01/18 08:00 91 02/01/18 08:00 97.9 86 18 120/75 96 Room Air 97.9 02/01/18 04:00 91 02/01/18 03:15 97.9 91 21 128/73 97 Room Air 97.9 02/01/18 00:00 93 02/01/18 00:00 98.1 93 20 112/64 97 Room Air 98.1 01/31/18 20:00 99.1 103 20 114/63 97 Room Air 99.1 01/31/18 20:00 105 01/31/18 19:28 91 20 Room Air 01/31/18 16:00 103 01/31/18 16:00 98.2 101 18 103/56 97 Room Air 98.2 Intake and Output 01/31/18 02/01/18 19:00 07:00 Intake Total 795 ml 2175.0 ml Output Total 1600 ml 1600 ml Balance -805 ml 575.0 ml Intake Oral 720 ml 600 ml IV Total 75 ml 1325.0 ml Blood Product 250 ml Output Urine Total 1600 ml 1600 ml Laboratory Tests Test 02/01/18 06:00 White Blood Count 6.2 K/UL (4.8-10.8) Red Blood Count 3.11 M/UL (4.70-6.10) L Hemoglobin 9.0 G/DL (14.2-18.0) L Hematocrit 27.7 % (42.0-52.0) L Mean Corpuscular Volume 89 FL (80-99) Mean Corpuscular Hemoglobin 28.9 PG (27.0-31.0) Mean Corpuscular Hemoglobin Concent 32.4 G/DL (32.0-36.0) Red Cell Distribution Width 12.7 % (11.6-14.8) Platelet Count 183 K/UL (150-450) Mean Platelet Volume 7.1 FL (6.5-10.1) Neutrophils (%) (Auto) 24.1 % (45.0-75.0) L Lymphocytes (%) (Auto) 54.8 % (20.0-45.0) H Monocytes (%) (Auto) 7.3 % (1.0-10.0) Eosinophils (%) (Auto) 12.3 % (0.0-3.0) H Basophils (%) (Auto) 1.6 % (0.0-2.0) Sodium Level 132 MMOL/L (136-145) L Potassium Level 3.5 MMOL/L (3.5-5.1) Chloride Level 105 MMOL/L (98-107) Carbon Dioxide Level 24 MMOL/L (21-32) Anion Gap 3 mmol/L (5-15) L Blood Urea Nitrogen 6 mg/dL (7-18) L Creatinine 1.1 MG/DL (0.55-1.30) Estimat Glomerular Filtration Rate > 60 mL/min (>60) Glucose Level 90 MG/DL (74-106) Uric Acid 4.5 MG/DL (2.6-7.2) Calcium Level 7.9 MG/DL (8.5-10.1) L Phosphorus Level 2.7 MG/DL (2.5-4.9) Magnesium Level 1.9 MG/DL (1.8-2.4) Total Bilirubin 0.3 MG/DL (0.2-1.0) Aspartate Amino Transf (AST/SGOT) 31 U/L (15-37) Alanine Aminotransferase (ALT/SGPT) 13 U/L (12-78) Alkaline Phosphatase 48 U/L (46-116) Total Protein 10.7 G/DL (6.4-8.2) H Albumin 1.8 G/DL (3.4-5.0) L Globulin 8.9 g/dL Albumin/Globulin Ratio 0.2 (1.0-2.7) L Microbiology Date/Time Source Procedure Growth Status 01/29/18 22:15 Blood Blood Culture - Preliminary NO GROWTH AFTER 48 HOURS Resulted 01/29/18 22:00 Blood Blood Culture - Preliminary NO GROWTH AFTER 48 HOURS Resulted 01/30/18 10:30 Sputum Gram Stain - Final Complete 01/30/18 10:30 Sputum Sputum Culture - Final NORMAL UPPER RESPIRATORY CLIVE PRESENT Complete 01/30/18 01:55 Nasal Nares MRSA Culture - Final Staphylococcus Aureus - Mrsa Complete 01/30/18 01:55 Rectum - Final NO CARBAPENEM-RESISTANT ENTEROBACTERI... Complete 01/30/18 01:55 Rectum VRE Culture - Final NO VANCOMYCIN RESISTANT ENTEROCOCCUS ... Complete Objective HEAD AND NECK: No JVD. LUNGS: Coarse rhonchi. CARDIOVASCULAR: Tachycardic S1 and S2 with no gallop or murmur. ABDOMEN: Soft and nontender. EXTREMITIES: A 1+ pitting edema. Mauro Santiago MD Feb 01, 2018 15:13
--- NOTE | 2018-02-01 16:08 | Consultation ---
Consult Note Consult Note [id number] Job ID Jonnathan Maria MD Feb 01, 2018 16:08
--- NOTE | 2018-02-01 20:44 | Infectious Diseases Prog Note ---
Assessment/Plan Assessment/Plan ASSESSMENT: The patient is a 32-year-old male with 1. Fever.- ?2ry to L hand cellulitis- r/o OI (patient with multiple previous hospitalizations, details unknown to me but patient non compliant with HIV treatment)- Some mild LANDAVERDE and Abd pain, no meningismus -Bcx NTD -sp cx normal claudia -CXR: no acute disease -2d Echo: no vegetations -u/a no pyuria 2. Leukocytosis; resolved 3. ? Bronchitis versus early stage of community acquired pneumonia. 4. ? left hand cellulitis (difficult to assess erythema in view of patient's dark skin). -xray hand: no fractures 5. AIDS (HIV dx on 2009)- ?treatments -CD4 158/103 (45./5.7%) -Toxoplasma IgM +, IgG neg- r/o false positive vs ?acute toxo however this is seem more in immunocompetent patients, toxoplasmosis in AIDS is due to reactivation and has IgG+ . -HIV, diagnosed in 2009 (unknown CD4 count and viral load). -History of recent fall 3 days [facility] and hand edema and swelling since then. -tobacco and marijuana use. -MRSA colonized PLAN: 1. We will continue the patient on IV vancomycin #3 and Levaquin #3/5. -01/30 SP Cefepime #1, Ceftriaxone x1 2. Monitor CBC and BMP. 3. Monitor blood culture. 4. AFB bcx, CrAg, hep serologies, HIV Vl, GC, CL -will need Hep A and B vaccine series if not immune 5. Monitor chest x-ray.; cXR am 6.f/u COcci, RPR 7. obtain medication list from [facility] Thank you, Dr. Jorge Toribio, for allowing me to participate in the care of this patient. I will follow the patient with you during this hospitalization. Subjective Allergies: Coded Allergies: Canned Fish (Verified Allergy, Intermediate, 02/01/18) [place] (Verified Allergy, Intermediate, 02/01/18) SULFAMETHOXAZOLE (Verified Allergy, Unknown, 01/29/18) TRIMETHOPRIM (Verified Allergy, Unknown, 01/29/18) Subjective afebrile in 36hrs no leukocytosis bcx NTD Objective Vital Signs Last 24 Hour Vital Signs Date Time Temp Pulse Resp B/P (MAP) Pulse Ox O2 Delivery O2 Flow Rate FiO2 02/01/18 16:00 86 02/01/18 16:00 98.2 88 20 116/77 98 Room Air 98.2 02/01/18 12:00 97.5 83 18 111/69 97 Room Air 97.5 02/01/18 12:00 75 02/01/18 08:17 75 20 Room Air 02/01/18 08:00 91 02/01/18 08:00 97.9 86 18 120/75 96 Room Air 97.9 02/01/18 04:00 91 02/01/18 03:15 97.9 91 21 128/73 97 Room Air 97.9 02/01/18 00:00 93 02/01/18 00:00 98.1 93 20 112/64 97 Room Air 98.1 Height (Feet): 5 Height (Inches): 9.00 Weight (Pounds): 142 Objective HEENT: No pale conjunctivae. No icterus. No thrush. NECK: No lymphadenopathy. CHEST: Clear. HEART: S1 and S2. ABDOMEN: Soft and nontender. EXTREMITIES: The patient has left hand edema and tenderness. NEUROLOGIC: Awake and alert. Microbiology Date/Time Source Procedure Growth Status 01/29/18 22:15 Blood Blood Culture - Preliminary NO GROWTH AFTER 48 HOURS Resulted 01/29/18 22:00 Blood Blood Culture - Preliminary NO GROWTH AFTER 48 HOURS Resulted 01/30/18 10:30 Sputum Gram Stain - Final Complete 01/30/18 10:30 Sputum Sputum Culture - Final NORMAL UPPER RESPIRATORY CLAUDIA PRESENT Complete 01/30/18 01:55 Nasal Nares MRSA Culture - Final Staphylococcus Aureus - Mrsa Complete 01/30/18 01:55 Rectum - Final NO CARBAPENEM-RESISTANT ENTEROBACTERI... Complete 01/30/18 01:55 Rectum VRE Culture - Final NO VANCOMYCIN RESISTANT ENTEROCOCCUS ... Complete Laboratory Tests Test 02/01/18 06:00 White Blood Count 6.2 K/UL (4.8-10.8) Red Blood Count 3.11 M/UL (4.70-6.10) L Hemoglobin 9.0 G/DL (14.2-18.0) L Hematocrit 27.7 % (42.0-52.0) L Mean Corpuscular Volume 89 FL (80-99) Mean Corpuscular Hemoglobin 28.9 PG (27.0-31.0) Mean Corpuscular Hemoglobin Concent 32.4 G/DL (32.0-36.0) Red Cell Distribution Width 12.7 % (11.6-14.8) Platelet Count 183 K/UL (150-450) Mean Platelet Volume 7.1 FL (6.5-10.1) Neutrophils (%) (Auto) 24.1 % (45.0-75.0) L Lymphocytes (%) (Auto) 54.8 % (20.0-45.0) H Monocytes (%) (Auto) 7.3 % (1.0-10.0) Eosinophils (%) (Auto) 12.3 % (0.0-3.0) H Basophils (%) (Auto) 1.6 % (0.0-2.0) Sodium Level 132 MMOL/L (136-145) L Potassium Level 3.5 MMOL/L (3.5-5.1) Chloride Level 105 MMOL/L (98-107) Carbon Dioxide Level 24 MMOL/L (21-32) Anion Gap 3 mmol/L (5-15) L Blood Urea Nitrogen 6 mg/dL (7-18) L Creatinine 1.1 MG/DL (0.55-1.30) Estimat Glomerular Filtration Rate > 60 mL/min (>60) Glucose Level 90 MG/DL (74-106) Uric Acid 4.5 MG/DL (2.6-7.2) Calcium Level 7.9 MG/DL (8.5-10.1) L Phosphorus Level 2.7 MG/DL (2.5-4.9) Magnesium Level 1.9 MG/DL (1.8-2.4) Total Bilirubin 0.3 MG/DL (0.2-1.0) Aspartate Amino Transf (AST/SGOT) 31 U/L (15-37) Alanine Aminotransferase (ALT/SGPT) 13 U/L (12-78) Alkaline Phosphatase 48 U/L (46-116) Total Protein 10.7 G/DL (6.4-8.2) H Albumin 1.8 G/DL (3.4-5.0) L Globulin 8.9 g/dL Albumin/Globulin Ratio 0.2 (1.0-2.7) L Current Medications Medications (Trade) Dose Ordered Sig/Gianna Route PRN Reason Start Time Stop Time Status Last Admin Dose Admin Acetaminophen (Tylenol) 650 mg Q4H PRN ORAL FEVER 01/30/18 03:45 03/01/18 03:44 01/31/18 05:12 Albuterol/ Ipratropium (Albuterol/ Ipratropium) 3 ml Q4HRT PRN HHN Shortness of Breath 01/30/18 03:45 02/04/18 03:44 Dextrose (Dextrose 50%) STAT PRN IV Hypoglycemia 01/30/18 03:45 03/01/18 03:44 Dextrose/Sodium Chloride 1,000 ml @ 75 mls/hr [id number] IV 01/30/18 03:45 03/01/18 03:44 02/01/18 08:10 Levofloxacin 150 ml @ 100 mls/hr Q24H IVPB 01/30/18 18:00 02/06/18 17:59 02/01/18 18:07 Lorazepam (Ativan 2mg/ml 1ml) 2 mg EVERY 2 HOURS PRN IV For Anxiety 01/30/18 04:00 02/06/18 03:59 Morphine Sulfate (Morphine Sulfate) 4 mg Q4H PRN IVP Severe Pain (Pain Scale 7-10) 01/30/18 12:56 02/06/18 12:55 Ondansetron HCl (Zofran) 4 mg Q6H PRN IVP Nausea & Vomiting 01/30/18 03:45 03/01/18 03:44 Pantoprazole (Protonix) 40 mg DAILY ORAL 01/30/18 12:30 03/01/18 12:29 02/01/18 08:10 Polyethylene Glycol (Miralax) 17 gm DAILYPRN PRN ORAL Constipation 01/30/18 03:45 03/01/18 03:44 Vancomycin HCl (Vanco rx to dose) 1 ea DAILY PRN MISC Per rx protocol 01/30/18 08:15 03/01/18 08:14 Vancomycin HCl 1 gm/Dextrose 275 ml @ 183.3 mls/ hr Q12H IVPB 01/30/18 09:30 02/04/18 09:29 02/01/18 08:10 Laura Tong M.D. Feb 01, 2018 20:44
[2018-02-01] MEDS ORDERED: Morphine Sulfate 4mg/ml Inj IVP PRN (21:00)
[2018-02-01] MEDS ORDERED: LORazepam Inj 2mg/ml 1ml IV PRN (22:00)
[2018-02-01] MEDS ORDERED: Albuterol/Ipratropium 3ml neb HHN PRN (23:00)
[2018-02-01] MEDS ORDERED: Isovue-300 100ml vial INJ PRN (23:30)
[2018-02-02] VITALS: BP 118/80
[2018-02-02] MEDS ORDERED: Miralax 17gm pkt ORAL PRN (03:45)
[2018-02-02 04:00] VITALS: BP 121/85
--- NOTE | 2018-02-02 04:00 | Consultation ---
DATE OF CONSULTATION: 02/01/2018 NOTE: POOR AUDIO HEMATOLOGY/ONCOLOGY CONSULTATION CONSULTING PHYSICIAN: Jonnathan Maria M.D. REQUESTING PHYSICIAN: Jorge Toribio D.O. REASON FOR CONSULTATION: Evaluation of significant anemia. IDENTIFYING DATA: Dear Dr. Jorge Toribio, The patient is a pleasant 32-year-old male, history of HIV, at this time presents with fevers. He woke up with fever, chills, night sweats, productive cough, positive, decreased appetite, 05/12, seen by ID Service, noted to have pneumonia, started on IV antibiotics. Hematology Service was consulted given ongoing anemia. PAST MEDICAL HISTORY: HIV years ago. The patient with history of tobacco and marijuana use. MEDICATIONS: Vancomycin and cefepime. ALLERGIES: Sulfa. FAMILY HISTORY: Noncontributory. SOCIAL HISTORY: Homeless. No IV drug use. REVIEW OF SYSTEMS: CONSTITUTIONAL: No fevers, chills, or night sweats. SKIN: No rashes, bumps, or itching. HEENT: No headache, hearing, or vision changes. BREASTS: No lumps, pain, or discharge. PULMONARY: No cough, sputum, or shortness of breath. GASTROINTESTINAL: No nausea, vomiting, or diarrhea. GENITOURINARY: No dysuria, frequency, or urgency. MUSCULOSKELETAL: No muscle, joint swelling, or trauma. PHYSICAL EXAMINATION: VITAL SIGNS: Reviewed. GENERAL: No distress. LUNGS: Decreased breath sounds. CARDIOVASCULAR: Regular rate. No S3 or S4. ABDOMEN: Soft, nontender, and nondistended. EXTREMITIES: A 1+ edema. LABORATORY DATA: WBC of 6.3, hemoglobin 9, hematocrit 28, and platelet count 183,000. Chemistry reviewed. The patient does have nucleated cells and hypochromia. ESR 135, ferritin 278, percent saturation 13. ASSESSMENT AND RECOMMENDATIONS: 1. Anemia due to underlying chronic disease. Continue to closely monitor. Anemia workup has been reviewed. 2. Anemia due to underlying kidney disease. Continue to closely monitor. 3. Failure to thrive due to underlying anemia. 4. drug abuse. 5. Vitamin B12 deficiency. 6. Hyponatremia. Continue to monitor. 7. Anemia of iron deficiency. 8. Proteinuria. 9. . I appreciate the consultation. Jonnathan Maria M.D. DR: XAVI JOB#: [id number] CC:
[2018-02-02] MEDS: D5NS 1,000 ML IV SCH (06:28)
[2018-02-02 07:53] LABS: HEMATOCRIT 29.7 % (42.0-52.0); HEMOGLOBIN 9.7 G/DL (14.2-18.0); MEAN CORPUSCULAR VOLUME 89 FL (80-99); PLATELET COUNT 244 K/UL (150-450); RED BLOOD COUNT 3.33 M/UL (4.70-6.10); RED CELL DISTRIBUTION WIDTH 12.8 % (11.6-14.8); WHITE BLOOD COUNT 7.1 K/UL (4.8-10.8)
[2018-02-02 08:00] VITALS: BP 122/79
[2018-02-02 08:17] LABS: ANION GAP 3 mmol/L (5-15); BLOOD UREA NITROGEN 7 mg/dL (7-18); CALCIUM 8.4 MG/DL (8.5-10.1); CARBON DIOXIDE 24 MMOL/L (21-32); CHLORIDE 104 MMOL/L (98-107); POTASSIUM 3.9 MMOL/L (3.5-5.1); SODIUM 131 MMOL/L (136-145)
--- NOTE | 2018-02-02 09:00 | General Progress Note ---
Assessment/Plan Problem List: (1) UTI (urinary tract infection) ICD Codes: N39.0 - Urinary tract infection, site not specified SNOMED: 77024617 (2) Anemia ICD Codes: D64.9 - Anemia, unspecified SNOMED: 030626153 Qualifiers: Qualified Codes: D64.9 - Anemia, unspecified (3) Cough ICD Codes: R05 - Cough SNOMED: 22836503 (4) Methamphetamine abuse ICD Codes: F15.10 - Other stimulant abuse, uncomplicated SNOMED: 995002357 (5) MASSIEL (acute kidney injury) ICD Codes: N17.9 - Acute kidney failure, unspecified SNOMED: 18485857 (6) Fever ICD Codes: R50.9 - Fever, unspecified SNOMED: 427200095 Qualifiers: Qualified Codes: R50.9 - Fever, unspecified (7) Sepsis ICD Codes: A41.9 - Sepsis, unspecified organism SNOMED: 80608424 Qualifiers: Qualified Codes: A41.9 - Sepsis, unspecified organism Status: stable, progressing Assessment/Plan ot pt diet abx detox dc to snf if clear Subjective Constitutional: Reports: weakness Allergies: Coded Allergies: Canned Fish (Verified Allergy, Intermediate, 02/01/18) [place] (Verified Allergy, Intermediate, 02/01/18) SULFAMETHOXAZOLE (Verified Allergy, Unknown, 01/29/18) TRIMETHOPRIM (Verified Allergy, Unknown, 01/29/18) All Systems: reviewed and negative except above Subjective sleepy calm Objective Last 24 Hour Vital Signs Date Time Temp Pulse Resp B/P (MAP) Pulse Ox O2 Delivery O2 Flow Rate FiO2 02/02/18 04:00 97.3 90 20 121/85 100 Room Air 97.3 02/02/18 00:00 98.1 80 20 118/80 100 Room Air 98.1 02/01/18 20:00 98.5 72 20 114/77 100 Room Air 98.5 02/01/18 19:58 98 20 Room Air 02/01/18 16:00 86 02/01/18 16:00 98.2 88 20 116/77 98 Room Air 98.2 02/01/18 12:00 97.5 83 18 111/69 97 Room Air 97.5 02/01/18 12:00 75 Intake and Output 02/01/18 02/02/18 19:00 07:00 Intake Total 720 ml Output Total 2200 ml 1600 ml Balance -1480 ml -1600 ml Intake Oral 720 ml Output Urine Total 2200 ml 1600 ml Laboratory Tests 02/02/18 06:15: White Blood Count 7.1, Red Blood Count 3.33L, Hemoglobin 9.7L, Hematocrit 29.7L , Mean Corpuscular Volume 89, Mean Corpuscular Hemoglobin 29.2, Mean Corpuscular Hemoglobin Concent 32.8, Red Cell Distribution Width 12.8, Platelet Count 244, Mean Platelet Volume 7.1, Neutrophils (%) (Auto) , Lymphocytes (%) ( Auto) , Monocytes (%) (Auto) , Eosinophils (%) (Auto) , Basophils (%) (Auto) , Neutrophils % (Manual) [Pending], Lymphocytes % (Manual) [Pending], Platelet Estimate [Pending], Platelet Morphology [Pending], Sodium Level 131L, Potassium Level 3.9, Chloride Level 104, Carbon Dioxide Level 24, Anion Gap 3L, Blood Urea Nitrogen 7, Creatinine 1.0, Estimat Glomerular Filtration Rate > 60, Glucose Level 84, Calcium Level 8.4L, Treponema pallidum Ab (FTA-ABS) [Pending] , Cryptococcus Antigen [Pending], Hepatitis A IgM Antibody [Pending], Hepatitis A Antibody Total [Pending], Hepatitis B Surface Antigen [Pending], Hepatitis B Surface Antibody [Pending], Hepatitis B Core Total Antibody [Pending], Hepatitis B Core IgM Antibody [Pending], Hepatitis C Antibody [Pending], HIV-1 RNA (PCR) log10 Value [Pending], HIV-1 RNA Ultraquantitative (PCR) [Pending], Toxoplasma IgG Antibody [Pending], Toxoplasma IgM Antibody [Pending] Height (Feet): 5 Height (Inches): 9.00 Weight (Pounds): 142 General Appearance: lethargic EENT: normal ENT inspection Neck: normal alignment Cardiovascular: normal peripheral pulses, normal rate, regular rhythm Respiratory/Chest: chest wall non-tender, lungs clear, normal breath sounds Abdomen: normal bowel sounds, non tender, soft Extremities: normal inspection Edema: no edema noted Arm (L), no edema noted Arm (R), no edema noted Leg (L), no edema noted Leg (R), no edema noted Pedal (L), no edema noted Pedal (R), no edema noted Generalized Neurologic: motor weakness Skin: normal pigmentation, warm/dry Jorge Toribio DO Feb 02, 2018 09:00
[2018-02-02] MEDS: Vancomycin 1 GM in D5W 275 ML IVPB SCH (09:26)
[2018-02-02] MEDS ORDERED: Gastrograffin 30ml ORAL PRN (09:45)
--- NOTE | 2018-02-02 11:17 | Nephrology Progress Note ---
Assessment/Plan Problem List: (1) Anemia (2) Proteinuria (3) Sepsis (4) MASSIEL (acute kidney injury) (5) Methamphetamine abuse Assessment Hgb higher, Na higher Renal failure resolved ? mixed acute and chronic Has proteinuria and hypoalbuminemia. Hyponatremia, likely due to Hypoalbuminemia, Na 132 today Low Iron and B12 Sepsis, cough, fever Methamphetamine abuse Anemia etiology?? worsened Plan IV venofer B12 SQ Per ID Urine studies and 24 h Urine protein gastric support trial of Albumin infusion and Lasix Subjective ROS Limited/Unobtainable: No Constitutional: Reports: malaise, weakness Objective Objective Last 24 Hour Vital Signs Date Time Temp Pulse Resp B/P (MAP) Pulse Ox O2 Delivery O2 Flow Rate FiO2 02/02/18 08:00 98.3 86 22 122/79 99 Room Air 98.3 02/02/18 07:50 86 20 Room Air 02/02/18 04:00 97.3 90 20 121/85 100 Room Air 97.3 02/02/18 00:00 98.1 80 20 118/80 100 Room Air 98.1 02/01/18 20:00 98.5 72 20 114/77 100 Room Air 98.5 02/01/18 19:58 98 20 Room Air 02/01/18 16:00 86 02/01/18 16:00 98.2 88 20 116/77 98 Room Air 98.2 02/01/18 12:00 97.5 83 18 111/69 97 Room Air 97.5 02/01/18 12:00 75 Intake and Output 02/01/18 02/02/18 19:00 07:00 Intake Total 720 ml Output Total 2200 ml 1600 ml Balance -1480 ml -1600 ml Intake Oral 720 ml Output Urine Total 2200 ml 1600 ml Laboratory Tests 02/02/18 06:15: White Blood Count 7.1, Red Blood Count 3.33L, Hemoglobin 9.7L, Hematocrit 29.7L , Mean Corpuscular Volume 89, Mean Corpuscular Hemoglobin 29.2, Mean Corpuscular Hemoglobin Concent 32.8, Red Cell Distribution Width 12.8, Platelet Count 244, Mean Platelet Volume 7.1, Neutrophils (%) (Auto) , Lymphocytes (%) ( Auto) , Monocytes (%) (Auto) , Eosinophils (%) (Auto) , Basophils (%) (Auto) , Differential Total Cells Counted 100, Neutrophils % (Manual) 27L, Lymphocytes % (Manual) 49H, Monocytes % (Manual) 15H, Eosinophils % (Manual) 9H, Basophils % ( Manual) 0, Band Neutrophils 0, Platelet Estimate Adequate, Platelet Morphology Normal, Red Blood Cell Morphology Normal, Sodium Level 131L, Potassium Level 3.9 , Chloride Level 104, Carbon Dioxide Level 24, Anion Gap 3L, Blood Urea Nitrogen 7, Creatinine 1.0, Estimat Glomerular Filtration Rate > 60, Glucose Level 84, Calcium Level 8.4L, Treponema pallidum Ab (FTA-ABS) [Pending], Cryptococcus Antigen [Pending], Hepatitis A IgM Antibody [Pending], Hepatitis A Antibody Total [Pending], Hepatitis B Surface Antigen [Pending], Hepatitis B Surface Antibody [Pending], Hepatitis B Core Total Antibody [Pending], Hepatitis B Core IgM Antibody [Pending], Hepatitis C Antibody [Pending], HIV-1 RNA (PCR) log10 Value [Pending], HIV-1 RNA Ultraquantitative (PCR) [Pending], Toxoplasma IgG Antibody [Pending], Toxoplasma IgM Antibody [Pending] Height (Feet): 5 Height (Inches): 9.00 Weight (Pounds): 142 General Appearance: no apparent distress Objective no change BRISEYDA ALBERT Feb 02, 2018 11:17
[2018-02-02 12:00] VITALS: BP 150/81
--- NOTE | 2018-02-02 12:44 | Pulmonology Progress Note ---
Assessment/Plan Problems: (1) Cough (2) Sepsis (3) HIV disease (4) Fever Assessment/Plan all reviewed cultures are negative doing better f/u Id recommendations Subjective ROS Limited/Unobtainable: No Constitutional: Reports: no symptoms HEENT: Repors: no symptoms Respiratory: Reports: no symptoms Cardiovascular: Reports: no symptoms Allergies: Coded Allergies: Canned Fish (Verified Allergy, Intermediate, 02/01/18) [place] (Verified Allergy, Intermediate, 02/01/18) SULFAMETHOXAZOLE (Verified Allergy, Unknown, 01/29/18) TRIMETHOPRIM (Verified Allergy, Unknown, 01/29/18) Objective Last 24 Hour Vital Signs Date Time Temp Pulse Resp B/P (MAP) Pulse Ox O2 Delivery O2 Flow Rate FiO2 02/02/18 12:00 98.7 76 20 150/81 97 Room Air 98.7 02/02/18 08:00 98.3 86 22 122/79 99 Room Air 98.3 02/02/18 07:50 86 20 Room Air 02/02/18 04:00 97.3 90 20 121/85 100 Room Air 97.3 02/02/18 00:00 98.1 80 20 118/80 100 Room Air 98.1 02/01/18 20:00 98.5 72 20 114/77 100 Room Air 98.5 02/01/18 19:58 98 20 Room Air 02/01/18 16:00 86 02/01/18 16:00 98.2 88 20 116/77 98 Room Air 98.2 Intake and Output 02/01/18 02/02/18 19:00 07:00 Intake Total 720 ml Output Total 2200 ml 1600 ml Balance -1480 ml -1600 ml Intake Oral 720 ml Output Urine Total 2200 ml 1600 ml General Appearance: WD/WN HEENT: normocephalic, atraumatic Respiratory/Chest: chest wall non-tender, normal breath sounds Cardiovascular: normal peripheral pulses, normal rate Abdomen: normal bowel sounds, soft, non tender Laboratory Tests 02/02/18 06:15: White Blood Count 7.1, Red Blood Count 3.33L, Hemoglobin 9.7L, Hematocrit 29.7L , Mean Corpuscular Volume 89, Mean Corpuscular Hemoglobin 29.2, Mean Corpuscular Hemoglobin Concent 32.8, Red Cell Distribution Width 12.8, Platelet Count 244, Mean Platelet Volume 7.1, Neutrophils (%) (Auto) , Lymphocytes (%) ( Auto) , Monocytes (%) (Auto) , Eosinophils (%) (Auto) , Basophils (%) (Auto) , Differential Total Cells Counted 100, Neutrophils % (Manual) 27L, Lymphocytes % (Manual) 49H, Monocytes % (Manual) 15H, Eosinophils % (Manual) 9H, Basophils % ( Manual) 0, Band Neutrophils 0, Platelet Estimate Adequate, Platelet Morphology Normal, Red Blood Cell Morphology Normal, Sodium Level 131L, Potassium Level 3.9 , Chloride Level 104, Carbon Dioxide Level 24, Anion Gap 3L, Blood Urea Nitrogen 7, Creatinine 1.0, Estimat Glomerular Filtration Rate > 60, Glucose Level 84, Calcium Level 8.4L, Treponema pallidum Ab (FTA-ABS) [Pending], Cryptococcus Antigen [Pending], Hepatitis A IgM Antibody [Pending], Hepatitis A Antibody Total [Pending], Hepatitis B Surface Antigen [Pending], Hepatitis B Surface Antibody [Pending], Hepatitis B Core Total Antibody [Pending], Hepatitis B Core IgM Antibody [Pending], Hepatitis C Antibody [Pending], HIV-1 RNA (PCR) log10 Value [Pending], HIV-1 RNA Ultraquantitative (PCR) [Pending], Toxoplasma IgG Antibody [Pending], Toxoplasma IgM Antibody [Pending] Current Medications Medications (Trade) Dose Ordered Sig/Gianna Route PRN Reason Start Time Stop Time Status Last Admin Dose Admin Acetaminophen (Tylenol) 650 mg Q4H PRN ORAL FEVER 02/01/18 23:45 03/01/18 03:44 Albuterol/ Ipratropium (Albuterol/ Ipratropium) 3 ml Q4HRT PRN HHN Shortness of Breath 02/01/18 23:00 02/04/18 03:44 Dextrose (Dextrose 50%) 25 ml STAT PRN IV Hypoglycemia 02/02/18 03:45 03/01/18 03:44 Dextrose (Dextrose 50%) 50 ml STAT PRN IV Hypoglycemia 02/01/18 21:15 03/03/18 21:14 Diatrizoate Meglum/ Diatrizoate Sod (Gastrografin) 30 ml NOW PRN ORAL Radiology Procedure 02/02/18 09:45 02/04/18 09:33 Furosemide (Lasix) 20 mg EVERY 8 HOURS IV 02/02/18 14:00 02/03/18 06:01 Iopamidol (Isovue-300 100ml) 100 ml NOW PRN INJ Radiology Procedure 02/01/18 23:30 02/03/18 23:27 Levofloxacin 150 ml @ 100 mls/hr Q24H IVPB 02/02/18 18:00 02/06/18 17:59 Lorazepam (Ativan 2mg/ml 1ml) 2 mg EVERY 2 HOURS PRN IV For Anxiety 02/01/18 22:00 02/06/18 03:59 Morphine Sulfate (Morphine Sulfate) 4 mg Q4H PRN IVP Severe Pain (Pain Scale 7-10) 02/01/18 21:00 02/06/18 12:55 Ondansetron HCl (Zofran) 4 mg Q6H PRN IVP Nausea & Vomiting 02/01/18 21:45 03/01/18 03:44 Pantoprazole (Protonix) 40 mg DAILY ORAL 02/02/18 09:00 03/01/18 12:29 02/02/18 08:54 Polyethylene Glycol (Miralax) 17 gm DAILYPRN PRN ORAL Constipation 02/02/18 03:45 03/01/18 03:44 Potassium Chloride (K-Dur) 20 meq TWICE A DAY ORAL 02/02/18 12:00 03/04/18 11:59 02/02/18 12:38 Sodium Chloride 250 ml @ 30 mls/hr ONCE ONCE IV 02/02/18 13:00 02/02/18 21:19 Vancomycin HCl (Vanco rx to dose) 1 ea DAILY PRN MISC Per rx protocol 02/02/18 09:00 03/01/18 08:14 Vancomycin HCl 1 gm/Dextrose 275 ml @ 183.3 mls/ hr Q12H IVPB 02/01/18 21:30 02/04/18 09:29 02/02/18 09:26 Robert Izquierdo MD Feb 02, 2018 12:44
--- NOTE | 2018-02-02 12:46 | Pulmonology Progress Note ---
Assessment/Plan Problems: (1) Cough (2) Sepsis (3) HIV disease (4) Fever Assessment/Plan improving all cultures are negatie f/u ID recommendations. Subjective ROS Limited/Unobtainable: No Constitutional: Reports: no symptoms HEENT: Repors: no symptoms Respiratory: Reports: no symptoms Allergies: Coded Allergies: Canned Fish (Verified Allergy, Intermediate, 02/01/18) [place] (Verified Allergy, Intermediate, 02/01/18) SULFAMETHOXAZOLE (Verified Allergy, Unknown, 01/29/18) TRIMETHOPRIM (Verified Allergy, Unknown, 01/29/18) Objective Last 24 Hour Vital Signs Date Time Temp Pulse Resp B/P (MAP) Pulse Ox O2 Delivery O2 Flow Rate FiO2 02/02/18 12:00 98.7 76 20 150/81 97 Room Air 98.7 02/02/18 08:00 98.3 86 22 122/79 99 Room Air 98.3 02/02/18 07:50 86 20 Room Air 02/02/18 04:00 97.3 90 20 121/85 100 Room Air 97.3 02/02/18 00:00 98.1 80 20 118/80 100 Room Air 98.1 02/01/18 20:00 98.5 72 20 114/77 100 Room Air 98.5 02/01/18 19:58 98 20 Room Air 02/01/18 16:00 86 02/01/18 16:00 98.2 88 20 116/77 98 Room Air 98.2 Intake and Output 02/01/18 02/02/18 19:00 07:00 Intake Total 720 ml Output Total 2200 ml 1600 ml Balance -1480 ml -1600 ml Intake Oral 720 ml Output Urine Total 2200 ml 1600 ml General Appearance: WD/WN HEENT: normocephalic, atraumatic Respiratory/Chest: chest wall non-tender, lungs clear Cardiovascular: normal peripheral pulses Abdomen: soft, non tender Extremities: no cyanosis Skin: no rash Laboratory Tests 02/02/18 06:15: White Blood Count 7.1, Red Blood Count 3.33L, Hemoglobin 9.7L, Hematocrit 29.7L , Mean Corpuscular Volume 89, Mean Corpuscular Hemoglobin 29.2, Mean Corpuscular Hemoglobin Concent 32.8, Red Cell Distribution Width 12.8, Platelet Count 244, Mean Platelet Volume 7.1, Neutrophils (%) (Auto) , Lymphocytes (%) ( Auto) , Monocytes (%) (Auto) , Eosinophils (%) (Auto) , Basophils (%) (Auto) , Differential Total Cells Counted 100, Neutrophils % (Manual) 27L, Lymphocytes % (Manual) 49H, Monocytes % (Manual) 15H, Eosinophils % (Manual) 9H, Basophils % ( Manual) 0, Band Neutrophils 0, Platelet Estimate Adequate, Platelet Morphology Normal, Red Blood Cell Morphology Normal, Sodium Level 131L, Potassium Level 3.9 , Chloride Level 104, Carbon Dioxide Level 24, Anion Gap 3L, Blood Urea Nitrogen 7, Creatinine 1.0, Estimat Glomerular Filtration Rate > 60, Glucose Level 84, Calcium Level 8.4L, Treponema pallidum Ab (FTA-ABS) [Pending], Cryptococcus Antigen [Pending], Hepatitis A IgM Antibody [Pending], Hepatitis A Antibody Total [Pending], Hepatitis B Surface Antigen [Pending], Hepatitis B Surface Antibody [Pending], Hepatitis B Core Total Antibody [Pending], Hepatitis B Core IgM Antibody [Pending], Hepatitis C Antibody [Pending], HIV-1 RNA (PCR) log10 Value [Pending], HIV-1 RNA Ultraquantitative (PCR) [Pending], Toxoplasma IgG Antibody [Pending], Toxoplasma IgM Antibody [Pending] Current Medications Medications (Trade) Dose Ordered Sig/Gianna Route PRN Reason Start Time Stop Time Status Last Admin Dose Admin Acetaminophen (Tylenol) 650 mg Q4H PRN ORAL FEVER 02/01/18 23:45 03/01/18 03:44 Albuterol/ Ipratropium (Albuterol/ Ipratropium) 3 ml Q4HRT PRN HHN Shortness of Breath 02/01/18 23:00 02/04/18 03:44 Dextrose (Dextrose 50%) 25 ml STAT PRN IV Hypoglycemia 02/02/18 03:45 03/01/18 03:44 Dextrose (Dextrose 50%) 50 ml STAT PRN IV Hypoglycemia 02/01/18 21:15 03/03/18 21:14 Diatrizoate Meglum/ Diatrizoate Sod (Gastrografin) 30 ml NOW PRN ORAL Radiology Procedure 02/02/18 09:45 02/04/18 09:33 Furosemide (Lasix) 20 mg EVERY 8 HOURS IV 02/02/18 14:00 02/03/18 06:01 Iopamidol (Isovue-300 100ml) 100 ml NOW PRN INJ Radiology Procedure 02/01/18 23:30 02/03/18 23:27 Levofloxacin 150 ml @ 100 mls/hr Q24H IVPB 02/02/18 18:00 02/06/18 17:59 Lorazepam (Ativan 2mg/ml 1ml) 2 mg EVERY 2 HOURS PRN IV For Anxiety 02/01/18 22:00 02/06/18 03:59 Morphine Sulfate (Morphine Sulfate) 4 mg Q4H PRN IVP Severe Pain (Pain Scale 7-10) 02/01/18 21:00 02/06/18 12:55 Ondansetron HCl (Zofran) 4 mg Q6H PRN IVP Nausea & Vomiting 02/01/18 21:45 03/01/18 03:44 Pantoprazole (Protonix) 40 mg DAILY ORAL 02/02/18 09:00 03/01/18 12:29 02/02/18 08:54 Polyethylene Glycol (Miralax) 17 gm DAILYPRN PRN ORAL Constipation 02/02/18 03:45 03/01/18 03:44 Potassium Chloride (K-Dur) 20 meq TWICE A DAY ORAL 02/02/18 12:00 03/04/18 11:59 02/02/18 12:38 Sodium Chloride 250 ml @ 30 mls/hr ONCE ONCE IV 02/02/18 13:00 02/02/18 21:19 Vancomycin HCl (Vanco rx to dose) 1 ea DAILY PRN MISC Per rx protocol 02/02/18 09:00 03/01/18 08:14 Vancomycin HCl 1 gm/Dextrose 275 ml @ 183.3 mls/ hr Q12H IVPB 02/01/18 21:30 02/04/18 09:29 02/02/18 09:26 Robert Izquierdo MD Feb 02, 2018 12:46
[2018-02-02] MEDS ORDERED: NaCl 3% 500ml 250 ML IV ONE (13:00)
--- NOTE | 2018-02-02 13:03 | General Progress Note ---
Assessment/Plan Status: stable, unchanged Assessment/Plan 1. Anemia due to underlying chronic disease. --> Continue to closely monitor. --> Anemia workup has been reviewed, will trend daily. --> hgb goal >7 ---> Given protein remains elevated, alb low --> obtain SPEP and immunofixation rule out multiple myeloma 2. Anemia due to underlying kidney disease. --> Continue to closely monitor. 3. Failure to thrive due to underlying anemia. 4. Meth drug abuse. 5. Vitamin B12 deficiency. 6. Hyponatremia. Continue to monitor. 7. Anemia of iron deficiency. 8. Proteinuria. Subjective Date patient seen: Feb 02, 2018 ROS Limited/Unobtainable: Yes Allergies: Coded Allergies: Canned Fish (Verified Allergy, Intermediate, 02/01/18) [place] (Verified Allergy, Intermediate, 02/01/18) SULFAMETHOXAZOLE (Verified Allergy, Unknown, 01/29/18) TRIMETHOPRIM (Verified Allergy, Unknown, 01/29/18) All Systems: reviewed and negative except above Subjective No acute events. CT pending. Vitals are stable. Objective Last 24 Hour Vital Signs Date Time Temp Pulse Resp B/P (MAP) Pulse Ox O2 Delivery O2 Flow Rate FiO2 02/02/18 12:00 98.7 76 20 150/81 97 Room Air 98.7 02/02/18 08:00 98.3 86 22 122/79 99 Room Air 98.3 02/02/18 07:50 86 20 Room Air 02/02/18 04:00 97.3 90 20 121/85 100 Room Air 97.3 02/02/18 00:00 98.1 80 20 118/80 100 Room Air 98.1 02/01/18 20:00 98.5 72 20 114/77 100 Room Air 98.5 02/01/18 19:58 98 20 Room Air 02/01/18 16:00 86 02/01/18 16:00 98.2 88 20 116/77 98 Room Air 98.2 Intake and Output 02/01/18 02/02/18 19:00 07:00 Intake Total 720 ml Output Total 2200 ml 1600 ml Balance -1480 ml -1600 ml Intake Oral 720 ml Output Urine Total 2200 ml 1600 ml Laboratory Tests 02/02/18 06:15: White Blood Count 7.1, Red Blood Count 3.33L, Hemoglobin 9.7L, Hematocrit 29.7L , Mean Corpuscular Volume 89, Mean Corpuscular Hemoglobin 29.2, Mean Corpuscular Hemoglobin Concent 32.8, Red Cell Distribution Width 12.8, Platelet Count 244, Mean Platelet Volume 7.1, Neutrophils (%) (Auto) , Lymphocytes (%) ( Auto) , Monocytes (%) (Auto) , Eosinophils (%) (Auto) , Basophils (%) (Auto) , Differential Total Cells Counted 100, Neutrophils % (Manual) 27L, Lymphocytes % (Manual) 49H, Monocytes % (Manual) 15H, Eosinophils % (Manual) 9H, Basophils % ( Manual) 0, Band Neutrophils 0, Platelet Estimate Adequate, Platelet Morphology Normal, Red Blood Cell Morphology Normal, Sodium Level 131L, Potassium Level 3.9 , Chloride Level 104, Carbon Dioxide Level 24, Anion Gap 3L, Blood Urea Nitrogen 7, Creatinine 1.0, Estimat Glomerular Filtration Rate > 60, Glucose Level 84, Calcium Level 8.4L, Treponema pallidum Ab (FTA-ABS) [Pending], Cryptococcus Antigen [Pending], Hepatitis A IgM Antibody [Pending], Hepatitis A Antibody Total [Pending], Hepatitis B Surface Antigen [Pending], Hepatitis B Surface Antibody [Pending], Hepatitis B Core Total Antibody [Pending], Hepatitis B Core IgM Antibody [Pending], Hepatitis C Antibody [Pending], HIV-1 RNA (PCR) log10 Value [Pending], HIV-1 RNA Ultraquantitative (PCR) [Pending], Toxoplasma IgG Antibody [Pending], Toxoplasma IgM Antibody [Pending] Height (Feet): 5 Height (Inches): 9.00 Weight (Pounds): 142 General Appearance: no apparent distress, alert EENT: PERRL/EOMI Neck: normal alignment, supple Cardiovascular: normal peripheral pulses Respiratory/Chest: no respiratory distress Abdomen: soft Jonnathan Maria MD Feb 02, 2018 13:03
--- NOTE | 2018-02-02 13:51 | Infectious Diseases Prog Note ---
Assessment/Plan Assessment/Plan ASSESSMENT: The patient is a 32-year-old male with -. Fever; improving- ?2ry to L hand cellulitis- r/o OI (patient with multiple previous hospitalizations, details unknown to me but patient non compliant with HIV treatment)- Some mild LANDAVERDE and Abd pain, no meningismus -Bcx NTD -sp cx normal claudia -CXR: no acute disease -2d Echo: no vegetations -u/a no pyuria -. Leukocytosis; resolved -. ? Bronchitis versus early stage of community acquired pneumonia. -. ? left hand cellulitis (difficult to assess erythema in view of patient's dark skin); resolving -xray hand: no fractures -Syphilis (RPR 1:16)- unclear prior titer- patient recently received treatment with Doxycycline and also Penicillin shot although did not completed regimen. He mentioned he had LP done and was told CSF was abnormal there was thought about IV Penicillin but never given (details to me are unclear) - AIDS (HIV dx on 2009)- per patient, he follows at [facility] in [address] however we called there and there is not report of any HIV treatment other than a Doxycyline course given at Urgent Care few months ago. Unclear how long he has been without treatment. Patient is poor historian. Cannot rule out opportunistic infection, patient refusing CT head/abd/p/chest -CD4 158/103 (4.5/5.7%) -Toxoplasma IgM +, IgG neg- r/o false positive vs ?acute toxo however this is seem more in immunocompetent patients, toxoplasmosis in AIDS is due to reactivation and has IgG+ -HIV, diagnosed in 2009 (unknown CD4 count and viral load). -History of recent fall 3 days [employer] and hand edema and swelling since then. -tobacco and marijuana use. -MRSA colonized PLAN: 1. We will continue the patient on IV vancomycin #4/5 and Levaquin #4/5. Start Atovaquone for PCP and toxoplasma prophylaxis Penicillin 2.4 IM x1 -01/30 SP Cefepime #1, Ceftriaxone x1 2. Monitor CBC and BMP. 3. Monitor blood culture. 4. f/u AFB bcx, CrAg, hep serologies, HIV Vl, GC, CL, cocci, repeat Toxo ab and PCR -will need Hep A and B vaccine series if not immune 5. Monitor chest x-ray. 6. obtain medication list from [facility] ([facility] does not have report of patient filling HIV medications here; per patient he reported this was his HIV clinic) -Request Records from [facility] (where patient was last admitted) 7. Recommended CT head/chest/abd/p w/ contrast to further evaluate for infection (specially evidence for opportunistic infection) or malignancy given fevers and AIDS but patient refusing. Thank you, Dr. Jorge Toribio, for allowing me to participate in the care of this patient. I will follow the patient with you during this hospitalization. Subjective Allergies: Coded Allergies: Canned Fish (Verified Allergy, Intermediate, 02/01/18) [place] (Verified Allergy, Intermediate, 02/01/18) SULFAMETHOXAZOLE (Verified Allergy, Unknown, 01/29/18) TRIMETHOPRIM (Verified Allergy, Unknown, 01/29/18) Subjective afebrile in 36hrs no leukocytosis bcx NTD Objective Vital Signs Last 24 Hour Vital Signs Date Time Temp Pulse Resp B/P (MAP) Pulse Ox O2 Delivery O2 Flow Rate FiO2 02/02/18 12:00 98.7 76 20 150/81 97 Room Air 98.7 02/02/18 08:00 98.3 86 22 122/79 99 Room Air 98.3 02/02/18 07:50 86 20 Room Air 02/02/18 04:00 97.3 90 20 121/85 100 Room Air 97.3 02/02/18 00:00 98.1 80 20 118/80 100 Room Air 98.1 02/01/18 20:00 98.5 72 20 114/77 100 Room Air 98.5 02/01/18 19:58 98 20 Room Air 02/01/18 16:00 86 02/01/18 16:00 98.2 88 20 116/77 98 Room Air 98.2 Height (Feet): 5 Height (Inches): 9.00 Weight (Pounds): 142 Objective HEENT: No pale conjunctivae. No icterus. No thrush. NECK: No lymphadenopathy. CHEST: Clear. HEART: S1 and S2. ABDOMEN: Soft and nontender. EXTREMITIES: The patient has left hand edema and tenderness. NEUROLOGIC: Awake and alert. Laboratory Tests Test 02/02/18 06:15 White Blood Count 7.1 K/UL (4.8-10.8) Red Blood Count 3.33 M/UL (4.70-6.10) L Hemoglobin 9.7 G/DL (14.2-18.0) L Hematocrit 29.7 % (42.0-52.0) L Mean Corpuscular Volume 89 FL (80-99) Mean Corpuscular Hemoglobin 29.2 PG (27.0-31.0) Mean Corpuscular Hemoglobin Concent 32.8 G/DL (32.0-36.0) Red Cell Distribution Width 12.8 % (11.6-14.8) Platelet Count 244 K/UL (150-450) Mean Platelet Volume 7.1 FL (6.5-10.1) Neutrophils (%) (Auto) % (45.0-75.0) Lymphocytes (%) (Auto) % (20.0-45.0) Monocytes (%) (Auto) % (1.0-10.0) Eosinophils (%) (Auto) % (0.0-3.0) Basophils (%) (Auto) % (0.0-2.0) Differential Total Cells Counted 100 Neutrophils % (Manual) 27 % (45-75) L Lymphocytes % (Manual) 49 % (20-45) H Monocytes % (Manual) 15 % (1-10) H Eosinophils % (Manual) 9 % (0-3) H Basophils % (Manual) 0 % (0-2) Band Neutrophils 0 % (0-8) Platelet Estimate Adequate Platelet Morphology Normal Red Blood Cell Morphology Normal Sodium Level 131 MMOL/L (136-145) L Potassium Level 3.9 MMOL/L (3.5-5.1) Chloride Level 104 MMOL/L (98-107) Carbon Dioxide Level 24 MMOL/L (21-32) Anion Gap 3 mmol/L (5-15) L Blood Urea Nitrogen 7 mg/dL (7-18) Creatinine 1.0 MG/DL (0.55-1.30) Estimat Glomerular Filtration Rate > 60 mL/min (>60) Glucose Level 84 MG/DL (74-106) Calcium Level 8.4 MG/DL (8.5-10.1) L Treponema pallidum Ab (FTA-ABS) Pending Cryptococcus Antigen Pending Hepatitis A IgM Antibody Pending Hepatitis A Antibody Total Pending Hepatitis B Surface Antigen Pending Hepatitis B Surface Antibody Pending Hepatitis B Core Total Antibody Pending Hepatitis B Core IgM Antibody Pending Hepatitis C Antibody Pending HIV-1 RNA (PCR) log10 Value Pending HIV-1 RNA Ultraquantitative (PCR) Pending Toxoplasma IgG Antibody Pending Toxoplasma IgM Antibody Pending Current Medications Medications (Trade) Dose Ordered Sig/Gianna Route PRN Reason Start Time Stop Time Status Last Admin Dose Admin Acetaminophen (Tylenol) 650 mg Q4H PRN ORAL FEVER 02/01/18 23:45 03/01/18 03:44 Albuterol/ Ipratropium (Albuterol/ Ipratropium) 3 ml Q4HRT PRN HHN Shortness of Breath 02/01/18 23:00 02/04/18 03:44 Dextrose (Dextrose 50%) 25 ml STAT PRN IV Hypoglycemia 02/02/18 03:45 03/01/18 03:44 Dextrose (Dextrose 50%) 50 ml STAT PRN IV Hypoglycemia 02/01/18 21:15 03/03/18 21:14 Diatrizoate Meglum/ Diatrizoate Sod (Gastrografin) 30 ml NOW PRN ORAL Radiology Procedure 02/02/18 09:45 02/04/18 09:33 Furosemide (Lasix) 20 mg EVERY 8 HOURS IV 02/02/18 14:00 02/03/18 06:01 Iopamidol (Isovue-300 100ml) 100 ml NOW PRN INJ Radiology Procedure 02/01/18 23:30 02/03/18 23:27 Levofloxacin 150 ml @ 100 mls/hr Q24H IVPB 02/02/18 18:00 02/06/18 17:59 Lorazepam (Ativan 2mg/ml 1ml) 2 mg EVERY 2 HOURS PRN IV For Anxiety 02/01/18 22:00 02/06/18 03:59 Morphine Sulfate (Morphine Sulfate) 4 mg Q4H PRN IVP Severe Pain (Pain Scale 7-10) 02/01/18 21:00 02/06/18 12:55 Ondansetron HCl (Zofran) 4 mg Q6H PRN IVP Nausea & Vomiting 02/01/18 21:45 03/01/18 03:44 Pantoprazole (Protonix) 40 mg DAILY ORAL 02/02/18 09:00 03/01/18 12:29 02/02/18 08:54 Polyethylene Glycol (Miralax) 17 gm DAILYPRN PRN ORAL Constipation 02/02/18 03:45 03/01/18 03:44 Potassium Chloride (K-Dur) 20 meq TWICE A DAY ORAL 02/02/18 12:00 03/04/18 11:59 02/02/18 12:38 Sodium Chloride 250 ml @ 30 mls/hr ONCE ONCE IV 02/02/18 13:00 02/02/18 21:19 Vancomycin HCl (Vanco rx to dose) 1 ea DAILY PRN MISC Per rx protocol 02/02/18 09:00 03/01/18 08:14 Vancomycin HCl 1 gm/Dextrose 275 ml @ 183.3 mls/ hr Q12H IVPB 02/01/18 21:30 02/04/18 09:29 02/02/18 09:26 Laura Tong M.D. Feb 02, 2018 13:51
--- NOTE | 2018-02-02 15:24 | Diagnostic Imaging Report ---
Indication: Cough Comparison: 01/29/2018 A single view chest radiograph was obtained. Findings: Cardiomediastinal appearance is within normal limits for age. Pulmonary vascularity is appropriate. The diaphragmatic contour is smooth and costophrenic angles are sharp. No pleural effusions are identified. The bones are unremarkable. Impression: No acute findings
[2018-02-02 16:00] VITALS: BP 119/79
[2018-02-02] MEDS ORDERED: Atovaquone 750mg/5ml Susp ORAL SCH (16:00)
[2018-02-02] MEDS ORDERED: Bicillin LA 2.4MMU/4ML SYR IM ONE (16:00)
--- NOTE | 2018-02-02 17:43 | Cardiac Electrophysiology PN ---
Assessment/Plan Assessment/Plan 1. Sinus tachycardia due to fever and sepsis. Echo EF 55% and no vegetation 2. HIV Fu by Dr. Evans. 3. Transgender male to female. 4. Hypokalemia and hypomagnesemia, replaced 5. Anemia s/p PRBC Hb 7 increased to 9 6. Awaiting placement as homeless DW RN Subjective Subjective Transferred off tele. Has leg pain. No CP or SOB. Objective Last 24 Hour Vital Signs Date Time Temp Pulse Resp B/P (MAP) Pulse Ox O2 Delivery O2 Flow Rate FiO2 02/02/18 16:00 97.4 90 20 119/79 98 Room Air 97.4 02/02/18 12:00 98.7 76 20 150/81 97 Room Air 98.7 02/02/18 08:00 98.3 86 22 122/79 99 Room Air 98.3 02/02/18 07:50 86 20 Room Air 02/02/18 04:00 97.3 90 20 121/85 100 Room Air 97.3 02/02/18 00:00 98.1 80 20 118/80 100 Room Air 98.1 02/01/18 20:00 98.5 72 20 114/77 100 Room Air 98.5 02/01/18 19:58 98 20 Room Air Intake and Output 02/01/18 02/02/18 19:00 07:00 Intake Total 720 ml Output Total 2200 ml 1600 ml Balance -1480 ml -1600 ml Intake Oral 720 ml Output Urine Total 2200 ml 1600 ml Laboratory Tests Test 02/02/18 06:15 02/02/18 14:34 White Blood Count 7.1 K/UL (4.8-10.8) Red Blood Count 3.33 M/UL (4.70-6.10) L Hemoglobin 9.7 G/DL (14.2-18.0) L Hematocrit 29.7 % (42.0-52.0) L Mean Corpuscular Volume 89 FL (80-99) Mean Corpuscular Hemoglobin 29.2 PG (27.0-31.0) Mean Corpuscular Hemoglobin Concent 32.8 G/DL (32.0-36.0) Red Cell Distribution Width 12.8 % (11.6-14.8) Platelet Count 244 K/UL (150-450) Mean Platelet Volume 7.1 FL (6.5-10.1) Neutrophils (%) (Auto) % (45.0-75.0) Lymphocytes (%) (Auto) % (20.0-45.0) Monocytes (%) (Auto) % (1.0-10.0) Eosinophils (%) (Auto) % (0.0-3.0) Basophils (%) (Auto) % (0.0-2.0) Differential Total Cells Counted 100 Neutrophils % (Manual) 27 % (45-75) L Lymphocytes % (Manual) 49 % (20-45) H Monocytes % (Manual) 15 % (1-10) H Eosinophils % (Manual) 9 % (0-3) H Basophils % (Manual) 0 % (0-2) Band Neutrophils 0 % (0-8) Platelet Estimate Adequate Platelet Morphology Normal Red Blood Cell Morphology Normal Sodium Level 131 MMOL/L (136-145) L Potassium Level 3.9 MMOL/L (3.5-5.1) Chloride Level 104 MMOL/L (98-107) Carbon Dioxide Level 24 MMOL/L (21-32) Anion Gap 3 mmol/L (5-15) L Blood Urea Nitrogen 7 mg/dL (7-18) Creatinine 1.0 MG/DL (0.55-1.30) Estimat Glomerular Filtration Rate > 60 mL/min (>60) Glucose Level 84 MG/DL (74-106) Calcium Level 8.4 MG/DL (8.5-10.1) L Treponema pallidum Ab (FTA-ABS) Pending Cryptococcus Antigen Pending Hepatitis A IgM Antibody Pending Hepatitis A Antibody Total Pending Hepatitis B Surface Antigen Pending Hepatitis B Surface Antibody Pending Hepatitis B Core Total Antibody Pending Hepatitis B Core IgM Antibody Pending Hepatitis C Antibody Pending HIV-1 RNA (PCR) log10 Value Pending HIV-1 RNA Ultraquantitative (PCR) Pending Toxoplasma IgG Antibody Pending Toxoplasma IgM Antibody Pending Urine Total Protein Pending Urine Albumin (%) Pending Urine Kvtdu-6-Szfvebudc (%) Pending Urine Ukeye-9-Zmtdbzseq (%) Pending Urine Beta-Globulin (%) Pending Urine Gamma Globulin (%) Pending Ur Protein Electrophoresis M-Zach Pending Urine Protein Electrophoresis Intrp Pending Total Protein (PEP) Pending Albumin (PEP) Pending Globulin (PEP) Pending Albumin/Globulin Ratio Pending Agtwp-9-Ixdfxsxda Pending Nkagy-3-Siryzasla Pending Beta Globulins Pending Beta Gamma Globulin Pending PEP Abnormal Protein Bands Pending Protein Electrophoresis Interpret Pending Immunoglobulin G Pending Immunoglobulin A Pending Immunoglobulin M Pending Immunofixation Screen Pending Objective HEAD AND NECK: No JVD. LUNGS: Coarse rhonchi. CARDIOVASCULAR: Tachycardic S1 and S2 with no gallop or murmur. ABDOMEN: Soft and nontender. EXTREMITIES: 1+ pitting edema. Mauro Santiago MD Feb 02, 2018 17:43
[2018-02-02 20:32] VITALS: BP 122/74
[2018-02-02] MEDS ORDERED: Vancomycin 1.25 GM in D5W 275 ML IVPB SCH (21:00)
[2018-02-02] MEDS: Vancomycin 1250mg/D5W 250ml IVPB SCH (21:01)
[2018-02-03 00:57] VITALS: BP 109/73
[2018-02-03 04:53] VITALS: BP 131/56
[2018-02-03 08:00] VITALS: BP 135/82
[2018-02-03] MEDS: Atovaquone 750mg/5ml Susp ORAL SCH (08:31)
--- NOTE | 2018-02-03 09:18 | General Progress Note ---
Assessment/Plan Problem List: (1) Anemia ICD Codes: D64.9 - Anemia, unspecified SNOMED: 284889294 Qualifiers: Qualified Codes: D64.9 - Anemia, unspecified (2) Sepsis ICD Codes: A41.9 - Sepsis, unspecified organism SNOMED: 98951984 Qualifiers: Qualified Codes: A41.9 - Sepsis, unspecified organism (3) Noncompliance ICD Codes: Z91.19 - Patient's noncompliance with other medical treatment and regimen SNOMED: 3526997 (4) UTI (urinary tract infection) ICD Codes: N39.0 - Urinary tract infection, site not specified SNOMED: 03814783 (5) HIV disease ICD Codes: B20 - Human immunodeficiency virus [HIV] disease SNOMED: 64483493 (6) Cough ICD Codes: R05 - Cough SNOMED: 33081428 Status: progressing Assessment/Plan afebrile hiv sepsis reviewed chart and labs Subjective ROS Limited/Unobtainable: Yes Allergies: Coded Allergies: Canned Fish (Verified Allergy, Intermediate, 02/01/18) [place] (Verified Allergy, Intermediate, 02/01/18) SULFAMETHOXAZOLE (Verified Allergy, Unknown, 01/29/18) TRIMETHOPRIM (Verified Allergy, Unknown, 01/29/18) Objective Last 24 Hour Vital Signs Date Time Temp Pulse Resp B/P (MAP) Pulse Ox O2 Delivery O2 Flow Rate FiO2 02/03/18 08:00 98.4 78 20 135/82 98 Room Air 98.4 90 02/03/18 04:53 96.3 78 20 131/56 99 Room Air 96.3 78 02/03/18 00:57 99.7 93 20 109/73 99 Room Air 99.7 93 02/02/18 20:39 94 20 Room Air 02/02/18 20:32 98.1 97 20 122/74 97 Room Air 98.1 97 02/02/18 16:00 97.4 90 20 119/79 98 Room Air 97.4 02/02/18 12:00 98.7 76 20 150/81 97 Room Air 98.7 Intake and Output 02/02/18 02/03/18 19:00 07:00 Intake Total 960 ml 333.334 ml Output Total 1100 ml 1200 ml Balance -140 ml -866.666 ml Intake Oral 960 ml IV Total 333.334 ml Output Urine Total 1100 ml 1200 ml # Voids 3 4 # Bowel Movements 1 Laboratory Tests 02/02/18 14:34: Urine Total Protein [Pending], Urine Albumin (%) [Pending], Urine Alpha-1- Globulins (%) [Pending], Urine Nzlaj-5-Avukpmqtc (%) [Pending], Urine Beta- Globulin (%) [Pending], Urine Gamma Globulin (%) [Pending], Ur Protein Electrophoresis M-Zach [Pending], Urine Protein Electrophoresis Intrp [Pending] , Total Protein (PEP) [Pending], Albumin (PEP) [Pending], Globulin (PEP) [ Pending], Albumin/Globulin Ratio [Pending], Kszsd-8-Hrtnqudvy [Pending], Alpha-2 -Globulins [Pending], Beta Globulins [Pending], Beta Gamma Globulin [Pending], PEP Abnormal Protein Bands [Pending], Protein Electrophoresis Interpret [Pending ], Immunoglobulin G [Pending], Immunoglobulin A [Pending], Immunoglobulin M [ Pending], Immunofixation Screen [Pending] Height (Feet): 5 Height (Inches): 9.00 Weight (Pounds): 142 Cardiovascular: normal rate Respiratory/Chest: lungs clear Dante Aguirre MD Feb 03, 2018 09:18
[2018-02-03] MEDS: Vancomycin 1250mg/D5W 250ml IVPB SCH ×2 (09:50→20:08)
--- NOTE | 2018-02-03 10:29 | General Progress Note ---
Assessment/Plan Status: stable Assessment/Plan 1. Anemia due to underlying chronic disease. --> Continue to closely monitor. --> Anemia workup has been reviewed, will trend daily. --> hgb goal >7 ---> Given protein remains elevated, alb low --> obtain SPEP and immunofixation rule out multiple myeloma 2. Anemia due to underlying kidney disease. --> Continue to closely monitor. 3. Failure to thrive due to underlying anemia. 4. Meth drug abuse. 5. Vitamin B12 deficiency. 6. Hyponatremia. Continue to monitor. 7. Anemia of iron deficiency. 8. Proteinuria. Subjective Date patient seen: Feb 03, 2018 ROS Limited/Unobtainable: Yes Allergies: Coded Allergies: Canned Fish (Verified Allergy, Intermediate, 02/01/18) [place] (Verified Allergy, Intermediate, 02/01/18) SULFAMETHOXAZOLE (Verified Allergy, Unknown, 01/29/18) TRIMETHOPRIM (Verified Allergy, Unknown, 01/29/18) All Systems: reviewed and negative except above Subjective Pt transferred from [facility]. Pt c/o leg pain. No acute events. 02/02 chest xr shows no acute findings. Vitals are stable. Objective Last 24 Hour Vital Signs Date Time Temp Pulse Resp B/P (MAP) Pulse Ox O2 Delivery O2 Flow Rate FiO2 02/03/18 08:00 98.4 78 20 135/82 98 Room Air 98.4 90 02/03/18 04:53 96.3 78 20 131/56 99 Room Air 96.3 78 02/03/18 00:57 99.7 93 20 109/73 99 Room Air 99.7 93 02/02/18 20:39 94 20 Room Air 02/02/18 20:32 98.1 97 20 122/74 97 Room Air 98.1 97 02/02/18 16:00 97.4 90 20 119/79 98 Room Air 97.4 02/02/18 12:00 98.7 76 20 150/81 97 Room Air 98.7 Intake and Output 02/02/18 02/03/18 19:00 07:00 Intake Total 960 ml 333.334 ml Output Total 1100 ml 1200 ml Balance -140 ml -866.666 ml Intake Oral 960 ml IV Total 333.334 ml Output Urine Total 1100 ml 1200 ml # Voids 3 4 # Bowel Movements 1 Laboratory Tests 02/02/18 14:34: Urine Total Protein [Pending], Urine Albumin (%) [Pending], Urine Alpha-1- Globulins (%) [Pending], Urine Iwlpe-7-Cpyptyubg (%) [Pending], Urine Beta- Globulin (%) [Pending], Urine Gamma Globulin (%) [Pending], Ur Protein Electrophoresis M-Zach [Pending], Urine Protein Electrophoresis Intrp [Pending] , Total Protein (PEP) [Pending], Albumin (PEP) [Pending], Globulin (PEP) [ Pending], Albumin/Globulin Ratio [Pending], Koenc-1-Qjltqbosn [Pending], Alpha-2 -Globulins [Pending], Beta Globulins [Pending], Beta Gamma Globulin [Pending], PEP Abnormal Protein Bands [Pending], Protein Electrophoresis Interpret [Pending ], Immunoglobulin G [Pending], Immunoglobulin A [Pending], Immunoglobulin M [ Pending], Immunofixation Screen [Pending] Height (Feet): 5 Height (Inches): 9.00 Weight (Pounds): 142 General Appearance: no apparent distress, alert EENT: PERRL/EOMI Neck: normal alignment Cardiovascular: normal peripheral pulses, no JVD Respiratory/Chest: normal breath sounds, no respiratory distress Abdomen: normal bowel sounds, soft KleynJonnathan ramesh MD Feb 03, 2018 10:28
--- NOTE | 2018-02-03 11:53 | Pulmonology Progress Note ---
Assessment/Plan Problems: (1) Cough (2) Sepsis (3) HIV disease (4) Fever Assessment/Plan dc planning to snif? improving all cultures are negatie f/u ID recommendations. Subjective ROS Limited/Unobtainable: No HEENT: Repors: no symptoms Respiratory: Reports: no symptoms Allergies: Coded Allergies: Canned Fish (Verified Allergy, Intermediate, 02/01/18) [place] (Verified Allergy, Intermediate, 02/01/18) SULFAMETHOXAZOLE (Verified Allergy, Unknown, 01/29/18) TRIMETHOPRIM (Verified Allergy, Unknown, 01/29/18) Objective Last 24 Hour Vital Signs Date Time Temp Pulse Resp B/P (MAP) Pulse Ox O2 Delivery O2 Flow Rate FiO2 02/03/18 08:00 98.4 78 20 135/82 98 Room Air 98.4 90 02/03/18 07:25 96 20 Room Air 02/03/18 04:53 96.3 78 20 131/56 99 Room Air 96.3 78 02/03/18 00:57 99.7 93 20 109/73 99 Room Air 99.7 93 02/02/18 20:39 94 20 Room Air 02/02/18 20:32 98.1 97 20 122/74 97 Room Air 98.1 97 02/02/18 16:00 97.4 90 20 119/79 98 Room Air 97.4 02/02/18 12:00 98.7 76 20 150/81 97 Room Air 98.7 Intake and Output 02/02/18 02/03/18 19:00 07:00 Intake Total 960 ml 333.334 ml Output Total 1100 ml 1200 ml Balance -140 ml -866.666 ml Intake Oral 960 ml IV Total 333.334 ml Output Urine Total 1100 ml 1200 ml # Voids 3 4 # Bowel Movements 1 General Appearance: WD/WN HEENT: normocephalic Respiratory/Chest: chest wall non-tender, lungs clear Cardiovascular: normal peripheral pulses, normal rate Genitourinary: normal external genitalia Extremities: no clubbing Laboratory Tests 02/02/18 14:34: Urine Total Protein [Pending], Urine Albumin (%) [Pending], Urine Alpha-1- Globulins (%) [Pending], Urine Dcfqg-5-Vdsksmsin (%) [Pending], Urine Beta- Globulin (%) [Pending], Urine Gamma Globulin (%) [Pending], Ur Protein Electrophoresis M-Zach [Pending], Urine Protein Electrophoresis Intrp [Pending] , Total Protein (PEP) [Pending], Albumin (PEP) [Pending], Globulin (PEP) [ Pending], Albumin/Globulin Ratio [Pending], Xgxjc-0-Msimkuvkj [Pending], Alpha-2 -Globulins [Pending], Beta Globulins [Pending], Beta Gamma Globulin [Pending], PEP Abnormal Protein Bands [Pending], Protein Electrophoresis Interpret [Pending ], Immunoglobulin G [Pending], Immunoglobulin A [Pending], Immunoglobulin M [ Pending], Immunofixation Screen [Pending] 02/03/18 09:50: Stool Occult Blood Negative Current Medications Medications (Trade) Dose Ordered Sig/Gianna Route PRN Reason Start Time Stop Time Status Last Admin Dose Admin Acetaminophen (Tylenol) 650 mg Q4H PRN ORAL FEVER 02/01/18 23:45 03/01/18 03:44 Albuterol/ Ipratropium (Albuterol/ Ipratropium) 3 ml Q4HRT PRN HHN Shortness of Breath 02/01/18 23:00 02/04/18 03:44 Atovaquone (Mepron Susp) 1,500 mg DAILY ORAL 02/03/18 09:00 03/05/18 08:59 02/03/18 08:31 Dextrose (Dextrose 50%) 25 ml STAT PRN IV Hypoglycemia 02/02/18 03:45 03/01/18 03:44 Dextrose (Dextrose 50%) 50 ml STAT PRN IV Hypoglycemia 02/01/18 21:15 03/03/18 21:14 Diatrizoate Meglum/ Diatrizoate Sod (Gastrografin) 30 ml NOW PRN ORAL Radiology Procedure 02/02/18 09:45 02/04/18 09:33 Levofloxacin 150 ml @ 100 mls/hr Q24H IVPB 02/02/18 18:00 02/06/18 17:59 02/02/18 17:15 Lorazepam (Ativan 2mg/ml 1ml) 2 mg EVERY 2 HOURS PRN IV For Anxiety 02/01/18 22:00 02/06/18 03:59 Morphine Sulfate (Morphine Sulfate) 4 mg Q4H PRN IVP Severe Pain (Pain Scale 7-10) 02/01/18 21:00 02/06/18 12:55 Ondansetron HCl (Zofran) 4 mg Q6H PRN IVP Nausea & Vomiting 02/01/18 21:45 03/01/18 03:44 Pantoprazole (Protonix) 40 mg DAILY ORAL 02/02/18 09:00 03/01/18 12:29 02/03/18 08:30 Polyethylene Glycol (Miralax) 17 gm DAILYPRN PRN ORAL Constipation 02/02/18 03:45 03/01/18 03:44 Potassium Chloride (K-Dur) 20 meq TWICE A DAY ORAL 02/02/18 12:00 03/04/18 11:59 02/03/18 08:31 Vancomycin HCl (Vanco rx to dose) 1 ea DAILY PRN MISC Per rx protocol 02/02/18 09:00 03/01/18 08:14 Vancomycin HCl/ Dextrose 250 ml @ 166.667 mls/hr Q12HR@0900,2100 IVPB 02/03/18 09:00 02/08/18 08:59 02/03/18 09:50 Robert Izquierdo MD Feb 03, 2018 11:53
[2018-02-03 12:00] VITALS: BP 129/77
--- NOTE | 2018-02-03 14:19 | Nephrology Progress Note ---
Assessment/Plan Problem List: (1) Anemia (2) Proteinuria (3) Sepsis (4) MASSIEL (acute kidney injury) (5) Methamphetamine abuse Assessment Hgb higher, Na higher Renal failure resolved ? mixed acute and chronic Has proteinuria and hypoalbuminemia. Hyponatremia, likely due to Hypoalbuminemia, Na 132 today Low Iron and B12 Sepsis, cough, fever Methamphetamine abuse Anemia etiology?? worsened Plan no labs today IV venofer B12 SQ Per ID Urine studies and 24 h Urine protein gastric support trial of Albumin infusion and Lasix Subjective ROS Limited/Unobtainable: No Constitutional: Reports: malaise, weakness Objective Objective Last 24 Hour Vital Signs Date Time Temp Pulse Resp B/P (MAP) Pulse Ox O2 Delivery O2 Flow Rate FiO2 02/03/18 12:00 97.3 89 20 129/77 99 Room Air 97.3 89 02/03/18 08:00 98.4 78 20 135/82 98 Room Air 98.4 90 02/03/18 07:25 96 20 Room Air 02/03/18 04:53 96.3 78 20 131/56 99 Room Air 96.3 78 02/03/18 00:57 99.7 93 20 109/73 99 Room Air 99.7 93 02/02/18 20:39 94 20 Room Air 02/02/18 20:32 98.1 97 20 122/74 97 Room Air 98.1 97 02/02/18 16:00 97.4 90 20 119/79 98 Room Air 97.4 Intake and Output 02/02/18 02/03/18 19:00 07:00 Intake Total 960 ml 333.334 ml Output Total 1100 ml 1200 ml Balance -140 ml -866.666 ml Intake Oral 960 ml IV Total 333.334 ml Output Urine Total 1100 ml 1200 ml # Voids 3 4 # Bowel Movements 1 Laboratory Tests 02/02/18 14:34: Urine Total Protein [Pending], Urine Albumin (%) [Pending], Urine Alpha-1- Globulins (%) [Pending], Urine Fnhsp-6-Njqmtxvwl (%) [Pending], Urine Beta- Globulin (%) [Pending], Urine Gamma Globulin (%) [Pending], Ur Protein Electrophoresis M-Zach [Pending], Urine Protein Electrophoresis Intrp [Pending] , Total Protein (PEP) [Pending], Albumin (PEP) [Pending], Globulin (PEP) [ Pending], Albumin/Globulin Ratio [Pending], Vhggy-9-Ogjawspbs [Pending], Alpha-2 -Globulins [Pending], Beta Globulins [Pending], Beta Gamma Globulin [Pending], PEP Abnormal Protein Bands [Pending], Protein Electrophoresis Interpret [Pending ], Immunoglobulin G [Pending], Immunoglobulin A [Pending], Immunoglobulin M [ Pending], Immunofixation Screen [Pending] 02/03/18 09:50: Stool Occult Blood Negative Height (Feet): 5 Height (Inches): 9.00 Weight (Pounds): 142 General Appearance: no apparent distress Cardiovascular: normal rate Respiratory/Chest: decreased breath sounds Abdomen: soft Objective no change BRISEYDA ALBERT Feb 03, 2018 14:19
--- NOTE | 2018-02-03 15:55 | Cardiac Electrophysiology PN ---
Assessment/Plan Assessment/Plan 1. Sinus tachycardia due to fever and sepsis. Echo EF 55% and no vegetation 2. HIV Fu by Dr. Evans. 3. Transgender male to female. 4. Hypokalemia and hypomagnesemia, replaced 5. Anemia s/p PRBC 6. Awaiting placement DW RN Subjective Subjective Transferred off tele. Has leg pain. No CP or SOB. Objective Last 24 Hour Vital Signs Date Time Temp Pulse Resp B/P (MAP) Pulse Ox O2 Delivery O2 Flow Rate FiO2 02/03/18 12:00 97.3 89 20 129/77 99 Room Air 97.3 89 02/03/18 08:00 98.4 78 20 135/82 98 Room Air 98.4 90 02/03/18 07:25 96 20 Room Air 02/03/18 04:53 96.3 78 20 131/56 99 Room Air 96.3 78 02/03/18 00:57 99.7 93 20 109/73 99 Room Air 99.7 93 02/02/18 20:39 94 20 Room Air 02/02/18 20:32 98.1 97 20 122/74 97 Room Air 98.1 97 02/02/18 16:00 97.4 90 20 119/79 98 Room Air 97.4 Intake and Output 02/02/18 02/03/18 19:00 07:00 Intake Total 960 ml 333.334 ml Output Total 1100 ml 1200 ml Balance -140 ml -866.666 ml Intake Oral 960 ml IV Total 333.334 ml Output Urine Total 1100 ml 1200 ml # Voids 3 4 # Bowel Movements 1 Laboratory Tests Test 02/03/18 09:50 Stool Occult Blood Negative (NEGATIVE) Objective HEAD AND NECK: No JVD. LUNGS: Coarse rhonchi. CARDIOVASCULAR: Tachycardic S1 and S2 with no gallop or murmur. ABDOMEN: Soft and nontender. EXTREMITIES: 1+ pitting edema. Mauro Santiago MD Feb 03, 2018 15:55
[2018-02-03 16:00] VITALS: BP 122/83
[2018-02-03] MEDS ORDERED: Tubing IV Secondary IV ONE (16:04)
--- NOTE | 2018-02-03 16:08 | Infectious Diseases Prog Note ---
Assessment/Plan Assessment/Plan ASSESSMENT: The patient is a 32-year-old male with -. Fever; improving- ?2ry to L hand cellulitis- suspect 2ry to untreated HIV . 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 -Bcx NTD -sp cx normal claudia -CXR: no acute disease -2d Echo: no vegetations -u/a no pyuria -. Leukocytosis; resolved -. ? Bronchitis versus early stage of community acquired pneumonia. -. ? left hand cellulitis (difficult to assess erythema in view of patient's dark skin); resolving -xray hand: no fractures -Syphilis (RPR 1:16)- unclear prior titer- patient recently received treatment with Doxycycline and also Penicillin shot although did not completed regimen. He mentioned he had LP done and was told CSF was abnormal there was thought about IV Penicillin but never given (details to me are unclear) - AIDS (HIV dx on 2009)- per patient, he follows at [facility] in [facility] however we called there and there is not report of any HIV treatment other than a Doxycyline course given at Urgent Care few months ago. Unclear how long he has been without treatment. Patient is poor historian. Cannot rule out opportunistic infection, patient refusing CT head/abd/p/chest - Per [facility] records: patient was on Genvoya -CD4 158/103 (4.5/5.7%) -Toxoplasma IgM +, IgG neg- r/o false positive vs ?acute toxo however this is seem more in immunocompetent patients, toxoplasmosis in AIDS is due to reactivation and has IgG+ -Hep A not immune, Hep B immune, Hep C neg -HIV, diagnosed in 2009 (unknown CD4 count and viral load). -History of recent fall 3 days [employer] and hand edema and swelling since then. -tobacco and marijuana use. -MRSA colonized PLAN: 1. We will continue the patient on IV vancomycin #5/5 and Levaquin #5/5.; ok to discharge Continue Atovaquone for PCP and toxoplasma prophylaxis Penicillin 2.4 IM x1 (patient refused; he now is ok; will re-order) -01/30 SP Cefepime #1, Ceftriaxone x1 2. Monitor CBC and BMP. 3. Monitor blood culture. 4. f/u AFB bcx, CrAg, HIV Vl, GC, CL, cocci, repeat Toxo ab and PCR -will need Hep A immunization as outpatient 5. Monitor chest x-ray. [facility]. [facility] was [facility] to be on Genvoya; This medication not available on our formulary. Will hold for now as evaluating for possible OI. Needs to [facility]-establish [facility] 7. Recommended CT head/chest/abd/p w/ contrast to further evaluate for infection (specially evidence for opportunistic infection) or malignancy given fevers and AIDS but patient refusing. Thank you, Dr. Jorge Toribio, for allowing me to participate in the care of this patient. I will follow the patient with you during this hospitalization. Subjective Allergies: Coded Allergies: Canned Fish (Verified Allergy, Intermediate, 02/01/18) [place] (Verified Allergy, Intermediate, 02/01/18) SULFAMETHOXAZOLE (Verified Allergy, Unknown, 01/29/18) TRIMETHOPRIM (Verified Allergy, Unknown, 01/29/18) Subjective afebrile in >72hrs no leukocytosis cx nTD refused PNC IM Objective Vital Signs Last 24 Hour Vital Signs Date Time Temp Pulse Resp B/P (MAP) Pulse Ox O2 Delivery O2 Flow Rate FiO2 02/03/18 12:00 97.3 89 20 129/77 99 Room Air 97.3 89 02/03/18 08:00 98.4 78 20 135/82 98 Room Air 98.4 90 02/03/18 07:25 96 20 Room Air 02/03/18 04:53 96.3 78 20 131/56 99 Room Air 96.3 78 02/03/18 00:57 99.7 93 20 109/73 99 Room Air 99.7 93 02/02/18 20:39 94 20 Room Air 02/02/18 20:32 98.1 97 20 122/74 97 Room Air 98.1 97 Height (Feet): 5 Height (Inches): 9.00 Weight (Pounds): 142 Objective HEENT: No pale conjunctivae. No icterus. No thrush. NECK: No lymphadenopathy. CHEST: Clear. HEART: S1 and S2. ABDOMEN: Soft and nontender. EXTREMITIES: The patient has left hand edema and tenderness. NEUROLOGIC: Awake and alert. Laboratory Tests Test 02/03/18 09:50 Stool Occult Blood Negative (NEGATIVE) Current Medications Medications (Trade) Dose Ordered Sig/Gianna Route PRN Reason Start Time Stop Time Status Last Admin Dose Admin Acetaminophen (Tylenol) 650 mg Q4H PRN ORAL FEVER 02/01/18 23:45 03/01/18 03:44 Albuterol/ Ipratropium (Albuterol/ Ipratropium) 3 ml Q4HRT PRN HHN Shortness of Breath 02/01/18 23:00 02/04/18 03:44 Atovaquone (Mepron Susp) 1,500 mg DAILY ORAL 02/03/18 09:00 03/05/18 08:59 02/03/18 08:31 Dextrose (Dextrose 50%) 25 ml STAT PRN IV Hypoglycemia 02/02/18 03:45 03/01/18 03:44 Dextrose (Dextrose 50%) 50 ml STAT PRN IV Hypoglycemia 02/01/18 21:15 03/03/18 21:14 Diatrizoate Meglum/ Diatrizoate Sod (Gastrografin) 30 ml NOW PRN ORAL Radiology Procedure 02/02/18 09:45 02/04/18 09:33 Levofloxacin 150 ml @ 100 mls/hr Q24H IVPB 02/02/18 18:00 02/06/18 17:59 02/02/18 17:15 Lorazepam (Ativan 2mg/ml 1ml) 2 mg EVERY 2 HOURS PRN IV For Anxiety 02/01/18 22:00 02/06/18 03:59 Morphine Sulfate (Morphine Sulfate) 4 mg Q4H PRN IVP Severe Pain (Pain Scale 7-10) 02/01/18 21:00 02/06/18 12:55 Ondansetron HCl (Zofran) 4 mg Q6H PRN IVP Nausea & Vomiting 02/01/18 21:45 03/01/18 03:44 Pantoprazole (Protonix) 40 mg DAILY ORAL 02/02/18 09:00 03/01/18 12:29 02/03/18 08:30 Polyethylene Glycol (Miralax) 17 gm DAILYPRN PRN ORAL Constipation 02/02/18 03:45 03/01/18 03:44 Potassium Chloride (K-Dur) 20 meq TWICE A DAY ORAL 02/02/18 12:00 03/04/18 11:59 02/03/18 08:31 Vancomycin HCl (Vanco rx to dose) 1 ea DAILY PRN MISC Per rx protocol 02/02/18 09:00 03/01/18 08:14 Vancomycin HCl/ Dextrose 250 ml @ 166.667 mls/hr Q12HR@0900,2100 IVPB 02/03/18 09:00 02/08/18 08:59 02/03/18 09:50 Laura Tong M.D. Feb 03, 2018 16:08
[2018-02-03] MEDS ORDERED: Bicillin LA 2.4MMU/4ML SYR IM ONE (18:00)
[2018-02-03 20:00] VITALS: BP 125/79
[2018-02-04] VITALS: BP 126/80
[2018-02-04 04:00] VITALS: BP 117/79
[2018-02-04 08:00] VITALS: BP 125/79
[2018-02-04 08:02] LABS: BASOPHILS % (AUTO) 1.6 % (0.0-2.0); EOSINOPHILS % (AUTO) 7.3 % (0.0-3.0); HEMATOCRIT 33.1 % (42.0-52.0); HEMOGLOBIN 10.6 G/DL (14.2-18.0); LYMPHOCYTES % (AUTO) 50.7 % (20.0-45.0); MEAN CORPUSCULAR VOLUME 89 FL (80-99); MONOCYTES % (AUTO) 10.1 % (1.0-10.0); NEUTROPHILS % (AUTO) 30.4 % (45.0-75.0); PLATELET COUNT 294 K/UL (150-450); RED CELL DISTRIBUTION WIDTH 12.8 % (11.6-14.8)
[2018-02-04 08:19] LABS: ALANINE AMINOTRANSFERASE 30 U/L (12-78); ALBUMIN 2.3 G/DL (3.4-5.0); ALKALINE PHOSPHATASE 59 U/L (46-116); ANION GAP 4 mmol/L (5-15); ASPARTATE AMINO TRANSFERASE 49 U/L (15-37); BILIRUBIN,TOTAL 0.4 MG/DL (0.2-1.0); BLOOD UREA NITROGEN 15 mg/dL (7-18); CARBON DIOXIDE 23 MMOL/L (21-32); CHLORIDE 102 MMOL/L (98-107); PHOSPHORUS 4.2 MG/DL (2.5-4.9); POTASSIUM 3.8 MMOL/L (3.5-5.1); SODIUM 129 MMOL/L (136-145)
[2018-02-04 08:23] LABS: ALBUMIN/GLOBULIN RATIO 0.6 (1.0-2.7)
[2018-02-04] MEDS: Atovaquone 750mg/5ml Susp ORAL SCH (08:41)
[2018-02-04] MEDS: Vancomycin 1250mg/D5W 250ml IVPB SCH ×2 (08:42→08:44)
--- NOTE | 2018-02-04 10:56 | Cardiac Electrophysiology PN ---
Assessment/Plan Assessment/Plan 1. Sinus tachycardia due to fever and sepsis. Echo EF 55% and no vegetation 2. HIV Fu by Dr. Evans. 3. Transgender male to female. 4. Hypokalemia and hypomagnesemia, replaced 5. Anemia s/p PRBC 6. Awaiting placement DW RN Subjective Subjective Has leg pain. No CP or SOB.RN at bedside Objective Last 24 Hour Vital Signs Date Time Temp Pulse Resp B/P (MAP) Pulse Ox O2 Delivery O2 Flow Rate FiO2 02/04/18 08:05 88 18 Room Air 02/04/18 08:00 98.2 95 18 125/79 100 Room Air 98.2 02/04/18 04:00 97.2 91 18 117/79 97 Room Air 97.2 02/04/18 00:00 97.1 79 18 126/80 100 Room Air 97.1 02/03/18 20:08 89 20 Room Air 02/03/18 20:00 98.2 95 18 125/79 100 Room Air 98.2 02/03/18 16:00 98.1 89 18 122/83 99 98.1 02/03/18 12:00 97.3 89 20 129/77 99 Room Air 97.3 89 Intake and Output 02/03/18 02/04/18 19:00 07:00 Intake Total 1230 ml 900 ml Balance 1230 ml 900 ml Intake Oral 980 ml 900 ml IV Total 250 ml # Voids 4 3 # Bowel Movements 2 Laboratory Tests Test 02/04/18 07:45 White Blood Count 10.0 K/UL (4.8-10.8) Red Blood Count 3.70 M/UL (4.70-6.10) L Hemoglobin 10.6 G/DL (14.2-18.0) L Hematocrit 33.1 % (42.0-52.0) L Mean Corpuscular Volume 89 FL (80-99) Mean Corpuscular Hemoglobin 28.6 PG (27.0-31.0) Mean Corpuscular Hemoglobin Concent 32.0 G/DL (32.0-36.0) Red Cell Distribution Width 12.8 % (11.6-14.8) Platelet Count 294 K/UL (150-450) Mean Platelet Volume 6.5 FL (6.5-10.1) Neutrophils (%) (Auto) 30.4 % (45.0-75.0) L Lymphocytes (%) (Auto) 50.7 % (20.0-45.0) H Monocytes (%) (Auto) 10.1 % (1.0-10.0) H Eosinophils (%) (Auto) 7.3 % (0.0-3.0) H Basophils (%) (Auto) 1.6 % (0.0-2.0) Sodium Level 129 MMOL/L (136-145) L Potassium Level 3.8 MMOL/L (3.5-5.1) Chloride Level 102 MMOL/L (98-107) Carbon Dioxide Level 23 MMOL/L (21-32) Anion Gap 4 mmol/L (5-15) L Blood Urea Nitrogen 15 mg/dL (7-18) Creatinine 1.0 MG/DL (0.55-1.30) Estimat Glomerular Filtration Rate > 60 mL/min (>60) Glucose Level 107 MG/DL (74-106) H Uric Acid 4.4 MG/DL (2.6-7.2) Calcium Level 9.0 MG/DL (8.5-10.1) Phosphorus Level 4.2 MG/DL (2.5-4.9) Magnesium Level 1.7 MG/DL (1.8-2.4) L Total Bilirubin 0.4 MG/DL (0.2-1.0) Aspartate Amino Transf (AST/SGOT) 49 U/L (15-37) H Alanine Aminotransferase (ALT/SGPT) 30 U/L (12-78) Alkaline Phosphatase 59 U/L (46-116) Pro-B-Type Natriuretic Peptide 204 pg/mL (0-125) H Total Protein 12.9 G/DL (6.4-8.2) H Albumin 2.3 G/DL (3.4-5.0) L Globulin 10.6 g/dL Albumin/Globulin Ratio 0.6 (1.0-2.7) L Vancomycin Level Trough 14.7 ug/mL (5.0-12.0) H Objective HEAD AND NECK: No JVD. LUNGS: Coarse rhonchi. CARDIOVASCULAR: Tachycardic S1 and S2 with no gallop or murmur. ABDOMEN: Soft and nontender. EXTREMITIES: 1+ pitting edema. Mauro Santiago MD Feb 04, 2018 10:56
--- NOTE | 2018-02-04 11:24 | Nephrology Progress Note ---
Assessment/Plan Problem List: (1) Anemia (2) Proteinuria (3) Sepsis (4) MASSIEL (acute kidney injury) (5) Methamphetamine abuse Assessment Hgb higher, Na higher Renal failure resolved ? mixed acute and chronic Has proteinuria and hypoalbuminemia. Hyponatremia, likely due to Hypoalbuminemia, Na 129 today Low Iron and B12 Sepsis, cough, fever Methamphetamine abuse Anemia etiology?? worsened Plan Trial of 3% saline and lasix IV venofer B12 SQ Per ID Urine studies and 24 h Urine protein gastric support Subjective ROS Limited/Unobtainable: No Constitutional: Reports: malaise Objective Objective Last 24 Hour Vital Signs Date Time Temp Pulse Resp B/P (MAP) Pulse Ox O2 Delivery O2 Flow Rate FiO2 02/04/18 08:05 88 18 Room Air 02/04/18 08:00 98.2 95 18 125/79 100 Room Air 98.2 02/04/18 04:00 97.2 91 18 117/79 97 Room Air 97.2 02/04/18 00:00 97.1 79 18 126/80 100 Room Air 97.1 02/03/18 20:08 89 20 Room Air 02/03/18 20:00 98.2 95 18 125/79 100 Room Air 98.2 02/03/18 16:00 98.1 89 18 122/83 99 98.1 02/03/18 12:00 97.3 89 20 129/77 99 Room Air 97.3 89 Intake and Output 02/03/18 02/04/18 19:00 07:00 Intake Total 1230 ml 900 ml Balance 1230 ml 900 ml Intake Oral 980 ml 900 ml IV Total 250 ml # Voids 4 3 # Bowel Movements 2 Laboratory Tests 02/04/18 07:45: White Blood Count 10.0, Red Blood Count 3.70L, Hemoglobin 10.6L, Hematocrit 33.1L, Mean Corpuscular Volume 89, Mean Corpuscular Hemoglobin 28.6, Mean Corpuscular Hemoglobin Concent 32.0, Red Cell Distribution Width 12.8, Platelet Count 294, Mean Platelet Volume 6.5, Neutrophils (%) (Auto) 30.4L, Lymphocytes ( %) (Auto) 50.7H, Monocytes (%) (Auto) 10.1H, Eosinophils (%) (Auto) 7.3H, Basophils (%) (Auto) 1.6, Sodium Level 129L, Potassium Level 3.8, Chloride Level 102, Carbon Dioxide Level 23, Anion Gap 4L, Blood Urea Nitrogen 15, Creatinine 1.0, Estimat Glomerular Filtration Rate > 60, Glucose Level 107H, Uric Acid 4.4, Calcium Level 9.0, Phosphorus Level 4.2, Magnesium Level 1.7L, Total Bilirubin 0.4, Aspartate Amino Transf (AST/SGOT) 49H, Alanine Aminotransferase (ALT/SGPT) 30, Alkaline Phosphatase 59, Pro-B-Type Natriuretic Peptide 204H, Total Protein 12.9H, Albumin 2.3L, Globulin 10.6, Albumin/ Globulin Ratio 0.6L, Vancomycin Level Trough 14.7H Height (Feet): 5 Height (Inches): 9.00 Weight (Pounds): 142 General Appearance: no apparent distress, lethargic Cardiovascular: tachycardia Respiratory/Chest: decreased breath sounds Abdomen: distended Objective no change BRISEYDA ALBERT Feb 04, 2018 11:24
[2018-02-04 12:00] VITALS: BP 129/75
--- NOTE | 2018-02-04 12:49 | Infectious Diseases Prog Note ---
Assessment/Plan Assessment/Plan ASSESSMENT: The patient is a 32-year-old male with -. Fever; resolved- ?2ry to L hand cellulitis- suspect 2ry to untreated HIV . R/ o OI - Some mild LANDAVERDE and Abd pain upon admission; now resolved, no meningismus -reviewed records at [facility] for hosp on December 2017- extensive w/u: s/p LP CSF only mildley elevated Protein; found to have syphilis RPR 1:128 and shigellosis other w/u neg for Crypto, cocci, GC/CL; AFB blood cx no growth to date. -Bcx NTD -sp cx normal claudia -CXR: no acute disease -2d Echo: no vegetations -u/a no pyuria w/u at [facility] 12/2017: -CSF: WBC 2, protein 52, gluc 48, RBC 13 -CrAg, VDRL neg -Meningitis panel (H. flu, listeria, N, meningitis, GBS, S. pna, CMV, Enterovirus, HSV, HHP, parechovirus, VZV, C. neoformans/ervin) neg -Serum: CrAg, Cocci ID and CF, strongyloides ab neg -AFB Bcx NTD -CD4 172, VL 1.32 million copies -stool PCR + Shigella; s/p tx w/ Cipro and Flagyl -RPR 12/20 1:128; s/p PNC 2.4 millions unit IM on 12/26 -RPR 09/2016 1:512; after treatment w/ 14 days IV PNC 08/2017> 1:64 09/2017 -GC/CL neg -CT abd/p:No gross abnormality. B/l inguinal adenopathy -CT brain: no acute abnormalities -CXR: no acute abnormalities - Leukocytosis; resolved -? Bronchitis versus early stage of community acquired pneumonia. -. ? left hand cellulitis (difficult to assess erythema in view of patient's dark skin); resolving -xray hand: no fractures -Syphilis (RPR 1:16)- Recently treated for Neurosyphilis on 2017 with good response of 1:518 to 1:64; reinfection on December 2017 w/ titers 1:128. Consistent with primary Syphilis, s/p Tx with good response- titers down to 1: 16. No further treatment needed at this point. - AIDS (HIV dx on 2009)- per patient, he follows at [facility] in [facility] however we called there and there is not report of any HIV treatment other than a Doxycyline course given at Urgent Care few months ago. Unclear how long he has been without treatment. Patient is poor historian. Cannot rule out opportunistic infection, patient refusing CT head/abd/p/chest - Per [facility] records: patient was on Genvoya since 11/2017 (prior regimen Truvada + ?) -CD4 158/103 (4.5/5.7%) -Toxoplasma IgM +, IgG neg- r/o false positive vs ?acute toxo however this is seem more in immunocompetent patients, toxoplasmosis in AIDS is due to reactivation and has IgG+ -Hep A not immune, Hep B immune, Hep C neg -HIV, diagnosed in 2009 (unknown CD4 count and viral load). -History of recent fall 3 days [employer] and hand edema and swelling since then. -tobacco and marijuana use. -MRSA colonized PLAN: 1. D/c IV vancomycin #01/05 and monitor off abx; ok to discharge from ID perspective Continue Atovaquone for PCP and toxoplasma prophylaxis -02/03 SP Levaquin #5 -01/30 SP Cefepime #1, Ceftriaxone x1 2. Monitor CBC and BMP. 3. Monitor blood culture. 4. f/u AFB bcx, CrAg, HIV Vl, GC, CL, cocci, repeat Toxo ab and PCR -will need Hep A immunization as outpatient 5. Monitor chest x-ray. 6. Per [facility] Records, patient was supposed to be on Genvoya; This medication not available on our formulary. Will hold for now as evaluating for possible OI. Needs to re-establish f/u with [facility] Clinic upon discharge for re-initiation of Genvoya or another ARV. Will not substitute Genvoya in house given prior multiple regimens and I dont have a HIV genotype results to guide treatment and also given poor compliance and risk for introducing resistance to new regimens. Thank you, Dr. Jorge Toribio, for allowing me to participate in the care of this patient. I will follow the patient with you during this hospitalization. Subjective Allergies: Coded Allergies: Canned Fish (Verified Allergy, Intermediate, 02/01/18) [place] (Verified Allergy, Intermediate, 02/01/18) SULFAMETHOXAZOLE (Verified Allergy, Unknown, 01/29/18) TRIMETHOPRIM (Verified Allergy, Unknown, 01/29/18) Subjective afebrile in >72hrs no leukocytosis cx nTD refused PNC IM Objective Vital Signs Last 24 Hour Vital Signs Date Time Temp Pulse Resp B/P (MAP) Pulse Ox O2 Delivery O2 Flow Rate FiO2 02/04/18 08:05 88 18 Room Air 02/04/18 08:00 98.2 95 18 125/79 100 Room Air 98.2 02/04/18 04:00 97.2 91 18 117/79 97 Room Air 97.2 02/04/18 00:00 97.1 79 18 126/80 100 Room Air 97.1 02/03/18 20:08 89 20 Room Air 02/03/18 20:00 98.2 95 18 125/79 100 Room Air 98.2 02/03/18 16:00 98.1 89 18 122/83 99 98.1 Height (Feet): 5 Height (Inches): 9.00 Weight (Pounds): 142 Objective HEENT: No pale conjunctivae. No icterus. No thrush. NECK: No lymphadenopathy. CHEST: Clear. HEART: S1 and S2. ABDOMEN: Soft and nontender. EXTREMITIES: The patient has left hand edema and tenderness. NEUROLOGIC: Awake and alert. Laboratory Tests Test 02/04/18 07:45 White Blood Count 10.0 K/UL (4.8-10.8) Red Blood Count 3.70 M/UL (4.70-6.10) L Hemoglobin 10.6 G/DL (14.2-18.0) L Hematocrit 33.1 % (42.0-52.0) L Mean Corpuscular Volume 89 FL (80-99) Mean Corpuscular Hemoglobin 28.6 PG (27.0-31.0) Mean Corpuscular Hemoglobin Concent 32.0 G/DL (32.0-36.0) Red Cell Distribution Width 12.8 % (11.6-14.8) Platelet Count 294 K/UL (150-450) Mean Platelet Volume 6.5 FL (6.5-10.1) Neutrophils (%) (Auto) 30.4 % (45.0-75.0) L Lymphocytes (%) (Auto) 50.7 % (20.0-45.0) H Monocytes (%) (Auto) 10.1 % (1.0-10.0) H Eosinophils (%) (Auto) 7.3 % (0.0-3.0) H Basophils (%) (Auto) 1.6 % (0.0-2.0) Sodium Level 129 MMOL/L (136-145) L Potassium Level 3.8 MMOL/L (3.5-5.1) Chloride Level 102 MMOL/L (98-107) Carbon Dioxide Level 23 MMOL/L (21-32) Anion Gap 4 mmol/L (5-15) L Blood Urea Nitrogen 15 mg/dL (7-18) Creatinine 1.0 MG/DL (0.55-1.30) Estimat Glomerular Filtration Rate > 60 mL/min (>60) Glucose Level 107 MG/DL (74-106) H Uric Acid 4.4 MG/DL (2.6-7.2) Calcium Level 9.0 MG/DL (8.5-10.1) Phosphorus Level 4.2 MG/DL (2.5-4.9) Magnesium Level 1.7 MG/DL (1.8-2.4) L Total Bilirubin 0.4 MG/DL (0.2-1.0) Aspartate Amino Transf (AST/SGOT) 49 U/L (15-37) H Alanine Aminotransferase (ALT/SGPT) 30 U/L (12-78) Alkaline Phosphatase 59 U/L (46-116) Pro-B-Type Natriuretic Peptide 204 pg/mL (0-125) H Total Protein 12.9 G/DL (6.4-8.2) H Albumin 2.3 G/DL (3.4-5.0) L Globulin 10.6 g/dL Albumin/Globulin Ratio 0.6 (1.0-2.7) L Vancomycin Level Trough 14.7 ug/mL (5.0-12.0) H Current Medications Medications (Trade) Dose Ordered Sig/Gianna Route PRN Reason Start Time Stop Time Status Last Admin Dose Admin Acetaminophen (Tylenol) 650 mg Q4H PRN ORAL FEVER 02/01/18 23:45 03/01/18 03:44 Atovaquone (Mepron Susp) 1,500 mg DAILY ORAL 02/03/18 09:00 03/05/18 08:59 02/04/18 08:41 Dextrose (Dextrose 50%) 25 ml STAT PRN IV Hypoglycemia 02/02/18 03:45 03/01/18 03:44 Dextrose (Dextrose 50%) 50 ml STAT PRN IV Hypoglycemia 02/01/18 21:15 03/03/18 21:14 Furosemide (Lasix) 20 mg EVERY 8 HOURS IV 02/04/18 14:00 02/05/18 06:01 Levofloxacin 150 ml @ 100 mls/hr Q24H IVPB 02/02/18 18:00 02/06/18 17:59 02/03/18 18:05 Lorazepam (Ativan 2mg/ml 1ml) 2 mg EVERY 2 HOURS PRN IV For Anxiety 02/01/18 22:00 02/06/18 03:59 Morphine Sulfate (Morphine Sulfate) 4 mg Q4H PRN IVP Severe Pain (Pain Scale 7-10) 02/01/18 21:00 02/06/18 12:55 Ondansetron HCl (Zofran) 4 mg Q6H PRN IVP Nausea & Vomiting 02/01/18 21:45 03/01/18 03:44 Pantoprazole (Protonix) 40 mg DAILY ORAL 02/02/18 09:00 03/01/18 12:29 02/04/18 08:40 Polyethylene Glycol (Miralax) 17 gm DAILYPRN PRN ORAL Constipation 02/02/18 03:45 03/01/18 03:44 Potassium Chloride (K-Dur) 40 meq TWICE A DAY ORAL 02/04/18 18:00 03/04/18 11:59 Sodium Chloride 250 ml @ 30 mls/hr ONCE ONCE IV 02/04/18 13:00 02/04/18 21:19 Vancomycin HCl (Vanco rx to dose) 1 ea DAILY PRN MISC Per rx protocol 02/02/18 09:00 03/01/18 08:14 Vancomycin HCl/ Dextrose 250 ml @ 166.667 mls/hr Q12HR@0900,2100 IVPB 02/03/18 09:00 02/08/18 08:59 02/04/18 08:44 Laura Tong M.D. Feb 04, 2018 12:49
[2018-02-04] MEDS ORDERED: NaCl 3% 500ml 250 ML IV ONE (13:00)
[2018-02-04] MEDS ORDERED: MEPRON SUS750 MG/5 M ORAL (13:36)
[2018-02-04 16:00] VITALS: BP 135/72
--- NOTE | 2018-02-04 19:23 | General Progress Note ---
Assessment/Plan Status: stable Assessment/Plan 1. Anemia due to underlying chronic disease. --> Continue to closely monitor. --> Anemia workup has been reviewed, will trend daily. --> hgb goal >7 ---> Given protein remains elevated, alb low --> obtain SPEP and immunofixation rule out multiple myeloma --> An apparent polyclonal gammopathy: IgG and IgM. [place] and lambda typing appear increased. 2. Anemia due to underlying kidney disease. --> Continue to closely monitor. 3. Failure to thrive due to underlying anemia. 4. Meth drug abuse. 5. Vitamin B12 deficiency. 6. Hyponatremia. Continue to monitor. 7. Anemia of iron deficiency. 8. Proteinuria. Subjective Date patient seen: Feb 04, 2018 ROS Limited/Unobtainable: Yes Allergies: Coded Allergies: Canned Fish (Verified Allergy, Intermediate, 02/01/18) [place] (Verified Allergy, Intermediate, 02/01/18) SULFAMETHOXAZOLE (Verified Allergy, Unknown, 01/29/18) TRIMETHOPRIM (Verified Allergy, Unknown, 01/29/18) All Systems: reviewed and negative except above Subjective Pt refusing CT and some care. No acute events. Vitals are stable. Objective Last 24 Hour Vital Signs Date Time Temp Pulse Resp B/P (MAP) Pulse Ox O2 Delivery O2 Flow Rate FiO2 02/04/18 12:00 98.4 94 20 129/75 98 Room Air 98.4 02/04/18 08:05 88 18 Room Air 02/04/18 08:00 98.2 95 18 125/79 100 Room Air 98.2 02/04/18 04:00 97.2 91 18 117/79 97 Room Air 97.2 02/04/18 00:00 97.1 79 18 126/80 100 Room Air 97.1 02/03/18 20:08 89 20 Room Air 02/03/18 20:00 98.2 95 18 125/79 100 Room Air 98.2 Intake and Output 02/03/18 02/04/18 19:00 07:00 Intake Total 1230 ml 900 ml Balance 1230 ml 900 ml Intake Oral 980 ml 900 ml IV Total 250 ml # Voids 4 3 # Bowel Movements 2 Laboratory Tests 02/04/18 07:45: White Blood Count 10.0, Red Blood Count 3.70L, Hemoglobin 10.6L, Hematocrit 33.1L, Mean Corpuscular Volume 89, Mean Corpuscular Hemoglobin 28.6, Mean Corpuscular Hemoglobin Concent 32.0, Red Cell Distribution Width 12.8, Platelet Count 294, Mean Platelet Volume 6.5, Neutrophils (%) (Auto) 30.4L, Lymphocytes ( %) (Auto) 50.7H, Monocytes (%) (Auto) 10.1H, Eosinophils (%) (Auto) 7.3H, Basophils (%) (Auto) 1.6, Sodium Level 129L, Potassium Level 3.8, Chloride Level 102, Carbon Dioxide Level 23, Anion Gap 4L, Blood Urea Nitrogen 15, Creatinine 1.0, Estimat Glomerular Filtration Rate > 60, Glucose Level 107H, Uric Acid 4.4, Calcium Level 9.0, Phosphorus Level 4.2, Magnesium Level 1.7L, Total Bilirubin 0.4, Aspartate Amino Transf (AST/SGOT) 49H, Alanine Aminotransferase (ALT/SGPT) 30, Alkaline Phosphatase 59, Pro-B-Type Natriuretic Peptide 204H, Total Protein 12.9H, Albumin 2.3L, Globulin 10.6, Albumin/ Globulin Ratio 0.6L, Vancomycin Level Trough 14.7H Height (Feet): 5 Height (Inches): 9.00 Weight (Pounds): 142 General Appearance: no apparent distress, alert EENT: PERRL/EOMI Neck: normal alignment, supple Cardiovascular: normal peripheral pulses Respiratory/Chest: no respiratory distress Abdomen: no mass Jonnathan Maria MD Feb 04, 2018 19:23
--- NOTE | 2018-02-05 09:40 | Discharge Summary ---
Discharge Summary Discharge Summary _ DATE OF ADMISSION: 01/30/2018 DATE OF DISCHARGE: 02/04/2018 ATTENDING: Dr. Jorge Toribio CONSULTANTS: Dr. Robert Santiago BRIEF HOSPITAL COURSE: Patient is a 32-year-old male, homeless, with history of HIV, presented to ED via EMS complaining of fever. He has history of HIV but not on medication, he has been off his medications for a month because he claimed it was stolen. He woke up in the morning with fever, chills and sweats. He also complained of cough productive of dark sputum. He had nausea but no vomiting, no diarrhea, no sick contacts. He had generalized body pain 10 out of 10. On evaluation at ED, he was febrile, temperature 103.3. Heart rate was elevated to 125, blood pressure was 102/55. Blood work showed leukocytosis, WBC 17. He was anemic hemoglobin 8.6, hematocrit 26, platelet was normal. Creatinine was elevated to 1.7, BUN was 15, sodium was 127. Urinalysis with 2+ leukocyte esterase, 2-4 RBC, 2-4 WBC, negative nitrite, 2+ protein. Urine toxicology was positive for THC and amphetamines. EKG was in normal sinus rhythm. Chest x-ray showed no radiographic evidence of cardiopulmonary disease. He was given IV fluids, heart rate and blood pressure improved post IV hydration. He was admitted for evaluation of fever, sepsis, UTI, tachycardia , anemia, renal insufficiency, HIV and drug abuse. Patient was diagnosed with HIV in 2009, with unknown CD4 count and viral load. He was seen by infectious disease specialist. He was given IV vancomycin, cefepime was switched to Levaquin. He was pancultured. Blood culture did not isolate any growth, sputum culture with normal claudia. He had possible left hand cellulitis, x-ray did not show any fractures. He had echocardiogram done, with no evidence of vegetations, no aortic regurgitation. RPR 1:16, patient with unclear prior titers. He was recently treated with doxycycline and penicillin shot. He had extensive work-up done at [facility] December 2017. He was ordered IM penicillin however patient refused. He was also recommended CT of the head, chest, abdomen and pelvis to further evaluate for infection given fever and AIDS, but patient refused. He was given Atovaquone for PCP and Toxoplasma prophylaxis. There was a drop in hemoglobin to 7.5. Anemia workup showed low iron levels and B12. He was given 1 unit packed RBC blood transfusion and was given IV Venofer and subcutaneous B12. Protein remained elevated and albumin was low. Patient was checked for SPEP and immunofixation to check for multiple myeloma. IgG and IgM, Pierz and Lambda typing appear increased. He had tachycardia secondary to fever and sepsis. Echocardiogram showed ejection fraction 55-60%. Heart rate eventually improved. Renal failure resolved. Hyponatremia was likely due to hypoalbuminemia. He was given 3% saline solution and Lasix. He was given potassium and magnesium supplements. He was eventually cleared for discharge. Advice need to reestablish/follow-up with [facility] clinic for reinitiation of Genvoya or another ARV. He refused to go to a [facility] or a facility. Patient was discharged home and signed a homeless discharge. FINAL DIAGNOSES: Sepsis AIDS/HIV with noncompliance to treatment Homelessness Fever secondary to left hand cellulitis, resolved Possible bronchitis Syphilis Acute kidney injury Anemia due to underlying chronic disease Anemia due to underlying kidney disease Iron deficiency anemia Drop in hemoglobin requiring blood transfusion Vitamin B12 deficiency Proteinuria Methamphetamine abuse Hyponatremia likely due to hypoalbuminemia Acute on chronic renal failure Sinus tachycardia due to fever and sepsis Transgender male to female Hypokalemia Hypomagnesemia DISPOSITION: Patient was discharged back to previous living condition. DISCHARGE MEDICATIONS: Refer to Discharge Medication List. DISCHARGE INSTRUCTIONS: Follow up with PCP in a week. Has appointment set up with [facility] on 02/12/2018 at 9 AM, patient aware. I have been assigned to dictate discharge summary on this account, and I was not involved in the patient's management. Corine Rojas NP Feb 05, 2018 09:40
== END 2018-02-04 18:55 | disposition home or self-care (01) | DRG 890 ==
LOC: EDBD 21:32 → EMR 22:18 → 2E 01-30 01:50 → EDBEDREQ 01-30 02:25 → 4E 02-01 21:08
PROC: 30233N1 Transfusion of Nonautologous Red Blood Cells into Peripheral Vein, Percutaneous Approach (ICD-10-PCS; principal; 2018-01-31)
DX: A41.9 Sepsis, unspecified organism (principal); B20 Human immunodeficiency virus [HIV] disease; N17.9 Acute kidney failure, unspecified; E87.1 Hypo-osmolality and hyponatremia; D50.9 Iron deficiency anemia, unspecified; F15.10 Other stimulant abuse, uncomplicated; N39.0 Urinary tract infection, site not specified; E53.8 Deficiency of other specified B group vitamins; L03.114 Cellulitis of left upper limb; Z59.0 Homelessness; J40 Bronchitis, not specified as acute or chronic; A53.9 Syphilis, unspecified; N18.9 Chronic kidney disease, unspecified; D63.1 Anemia in chronic kidney disease; E88.09 Other disorders of plasma-protein metabolism, not elsewhere classified; E87.6 Hypokalemia; E83.42 Hypomagnesemia; Z91.14 Patient's other noncompliance with medication regimen; Z88.2 Allergy status to sulfonamides; Z88.8 Allergy status to other drugs, medicaments and biological substances; Z91.81 History of falling; F17.200 Nicotine dependence, unspecified, uncomplicated; Z22.322 Carrier or suspected carrier of Methicillin resistant Staphylococcus aureus
CPT/HCPCS: 36415; 71045; 80048; 80053; 80061; 80069; 80202; 80307; 81001; 81003; 81050; 82270; 82378; 82533; 82550; 82607; 82728; 82746; 82784; 82977; 83540; 83550; 83605; 83615; 83735; 83880; 83930; 83935; 84100; 84133; 84156; 84165; 84300; 84443; 84550; 85007; 85025; 85044; 85060; 85610; 85651; 85730; 86140; 86334; 86360; 86580; 86592; 86635; 86689; 86703; 86704; 86705; 86708; 86709; 86777; 86778; 86780; 86803; 86850; 86900; 86901; 86920; 87040; 87070; 87081; 87205; 87340; 87449; 87517; 87536; 89050; 93005; 93306; 93970; 94664; 97803; 99285; J8499

== ENCOUNTER 2018-02-08 09:46 | Emergency (ER) | payer MEDICAID ==
[~2018-02-08] VITALS: Ht 177.8 cm; Wt 77.1 kg
[~2018-02-08 09:46] MED LIST: MEPRON SUS750 MG/5 M ORAL; NITROFURANTOIN100 M2 ORAL
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
[2018-02-08] MEDS ORDERED: IBUPROFEN600 MG ORAL (11:08)
[2018-02-08 11:21] VITALS: BP 118/84
--- NOTE | 2018-02-08 11:28 | Diagnostic Imaging Report ---
Indication: Pain Knee pain/trauma 3 views of the right knee were obtained. Findings: No acute fracture, malalignment, or joint effusion are identified. Joint space is relatively well-maintained. Impression: Negative for acute findings.
[2018-02-11] MEDS ORDERED: CIPROFLOXACIN500 M2 ORAL (17:38)
[2018-02-11] MEDS ORDERED: DICYCLOMINE HCL10 MG PO (17:38)
== END 2018-02-08 11:34 | disposition home or self-care (01) ==
LOC: EDBD 09:46 → EMR 11:05
DX: S89.91XA Unspecified injury of right lower leg, initial encounter (principal); Z88.1 Allergy status to other antibiotic agents; Z88.2 Allergy status to sulfonamides; Z91.018 Allergy to other foods; Z91.013 Allergy to seafood; V19.9XXA Pedal cyclist (driver) (passenger) injured in unspecified traffic accident, initial encounter; Y92.9 Unspecified place or not applicable
CPT/HCPCS: 99283